=== PATIENT | female | born 1965 | race Caucasian/White ===

== ENCOUNTER → 2017-02-05 | Outpatient (REF) | payer BC ==
[~2017-02-05] MED LIST: DULC5TAB PO; FLUO40CA PO; MULT1TAB9 PO
[2017-02-05 12:15] LABS: ALBUMIN 4.2 GM/DL (3.2-5.2); ALBUMIN/GLOBULIN RATIO 1.31 (1.00-1.93); ALKALINE PHOSPHATASE 71 U/L (45-117); ALT/SGPT 31 U/L (12-78); ANION GAP 8 MEQ/L (8-16); AST/SGOT 15 U/L (15-37); BILIRUBIN,TOTAL 0.4 MG/DL (0.2-1.0); BLOOD UREA NITROGEN 14 MG/DL (7-18); CALCIUM LEVEL 9.5 MG/DL (8.5-10.1); CARBON DIOXIDE LEVEL 28 MEQ/L (21-32); CHLORIDE LEVEL 102 MEQ/L (98-107); CHOLESTEROL LEVEL 238 MG/DL (<200); CREATININE FOR GFR 0.77 MG/DL (0.55-1.02); GLOMERULAR FILTRATION RATE > 60.0 (>51); GLUCOSE, FASTING 93 MG/DL (70-105); POTASSIUM SERUM 4.2 MEQ/L (3.5-5.1); SODIUM LEVEL 138 MEQ/L (136-145); TOTAL PROTEIN 7.4 GM/DL (6.4-8.2); TRIGLYCERIDES LEVEL 139 MG/DL (<150)
== END ==
LOC: M SFHCCLAY 07:52
PROVIDERS: ATTEND Nurse Practitioner
DX: Z00.00 Encounter for general adult medical examination without abnormal findings (principal)

== ENCOUNTER 2018-05-23 10:03 | Emergency (ER) | payer OTHER, BC ==
[2018-05-23] MEDS: BACLOFEN 10 MG TAB PO (11:34)
[2018-05-23] MEDS: NORCO, ANEXSIA 5/325MG TABLET (HYDROcodone/ACETAMINOPHEN) PO (11:35)
== END 2018-05-23 12:02 | disposition home or self-care (01) ==
LOC: M ED 10:03
DX: S13.4XXA Sprain of ligaments of cervical spine, initial encounter (principal); V49.9XXA Car occupant (driver) (passenger) injured in unspecified traffic accident, initial encounter; Y92.9 Unspecified place or not applicable; Y93.9 Activity, unspecified; Y99.9 Unspecified external cause status; G89.29 Other chronic pain; M54.9 Dorsalgia, unspecified; F41.9 Anxiety disorder, unspecified; Z98.1 Arthrodesis status; Z79.899 Other long term (current) drug therapy
CPT/HCPCS: 72125

== ENCOUNTER 2018-10-06 13:31 | Emergency (ER) | payer BC, OTHER ==
[2018-10-06] MEDS: NORCO, ANEXSIA 5/325MG TABLET (HYDROcodone/ACETAMINOPHEN) PO (16:38)
== END 2018-10-06 17:07 | disposition home or self-care (01) ==
LOC: M ED 13:31
DX: S93.402A Sprain of unspecified ligament of left ankle, initial encounter (principal); X50.9XXA Other and unspecified overexertion or strenuous movements or postures, initial encounter; Y92.018 Other place in single-family (private) house as the place of occurrence of the external cause; Z79.899 Other long term (current) drug therapy
CPT/HCPCS: 73610

== ENCOUNTER → 2018-10-14 | Outpatient (REF) | payer BC ==
[2018-10-14 11:34] LABS: HEMATOCRIT 41.8 % (36.0-47.0); HEMOGLOBIN 13.8 g/dl (12.0-15.5); MEAN CORPUSCULAR HEMOGLOBIN 29.9 pg (27.0-33.0); MEAN CORPUSCULAR VOLUME 90.7 fl (80.0-96.0); PLATELET COUNT, AUTOMATED 249 10^3/uL (150-450); RED BLOOD COUNT 4.61 10^6/uL (4.00-5.40); RED CELL DISTRIBUTION WIDTH 12.1 % (11.5-14.5); WHITE BLOOD COUNT 5.6 10^3/uL (4.0-10.0)
[2018-10-14 11:43] LABS: ALBUMIN 3.7 GM/DL (3.2-5.2); ALBUMIN/GLOBULIN RATIO 1.19 (1.00-1.93); ALKALINE PHOSPHATASE 51 U/L (45-117); ALT/SGPT 23 U/L (12-78); ANION GAP 5 MEQ/L (8-16); AST/SGOT 10 U/L (7-37); BILIRUBIN,TOTAL 0.7 MG/DL (0.2-1.0); BLOOD UREA NITROGEN 16 MG/DL (7-18); CALCIUM LEVEL 8.6 MG/DL (8.5-10.1); CARBON DIOXIDE LEVEL 29 MEQ/L (21-32); CHLORIDE LEVEL 106 MEQ/L (98-107); CHOLESTEROL LEVEL 196 MG/DL (<200); CHOLESTEROL RISK RATIO 3.438 (<5); CREATININE FOR GFR 0.74 MG/DL (0.55-1.30); GLOMERULAR FILTRATION RATE > 60.0 (>51); GLUCOSE, FASTING 95 MG/DL (70-100); HDL CHOLESTEROL 57 MG/DL (>40); LDL CHOLESTEROL 123 MG/DL (<100); NON-HDL-C 139 MG/DL; POTASSIUM SERUM 4.6 MEQ/L (3.5-5.1); SODIUM LEVEL 140 MEQ/L (136-145); TOTAL 25(OH) VITAMIN D 32.5 NG/ML (30.0-100.0); TOTAL PROTEIN 6.8 GM/DL (6.4-8.2); TRIGLYCERIDES LEVEL 82 MG/DL (<150)
== END ==
LOC: M SFHCCLAY 07:03
DX: F32.9 Major depressive disorder, single episode, unspecified (principal); E78.5 Hyperlipidemia, unspecified; E55.9 Vitamin D deficiency, unspecified

== ENCOUNTER → 2019-05-11 | Outpatient (REF) | payer BC ==
[~2019-05-11] MED LIST changes: +BACL1TAB8 PO; +HYDR-3715 PO
== END ==
LOC: M LAB REF 18:45
PROVIDERS: ATTEND Plastic Surgery Surgery of the Hand
DX: D23.71 Other benign neoplasm of skin of right lower limb, including hip (principal)

== ENCOUNTER → 2019-06-05 | Outpatient (REF) | payer BC ==
[2019-06-05 12:04] LABS: CHOLESTEROL RISK RATIO 3.564 (<5)
== END ==
LOC: M SFHCCLAY 07:07
PROVIDERS: ATTEND Nurse Practitioner Family
DX: E78.5 Hyperlipidemia, unspecified (principal)

== ENCOUNTER → 2020-02-29 | Outpatient (REF) | payer BC ==
[2020-02-29 17:30] LABS: HEMATOCRIT 41.6 % (36.0-47.0); HEMOGLOBIN 13.3 g/dl (12.0-15.5); MEAN CORPUSCULAR HEMOGLOBIN 28.7 pg (27.0-33.0); MEAN CORPUSCULAR VOLUME 89.8 fl (80.0-96.0); PLATELET COUNT, AUTOMATED 326 10^3/uL (150-450); RED BLOOD COUNT 4.63 10^6/uL (4.00-5.40); WHITE BLOOD COUNT 9.7 10^3/uL (4.0-10.0)
[2020-02-29 17:31] LABS: ALBUMIN 3.7 GM/DL (3.2-5.2); ALT/SGPT 23 U/L (12-78); BILIRUBIN,TOTAL 0.4 MG/DL (0.2-1.0); BLOOD UREA NITROGEN 13 MG/DL (7-18); CALCIUM LEVEL 9.1 MG/DL (8.5-10.1); CARBON DIOXIDE LEVEL 27 MEQ/L (21-32); CHLORIDE LEVEL 105 MEQ/L (98-107); CHOLESTEROL LEVEL 217 MG/DL (<200); CHOLESTEROL RISK RATIO 4.254 (<5); CREATININE FOR GFR 0.79 MG/DL (0.55-1.30); GLOMERULAR FILTRATION RATE > 60.0 (>51); GLUCOSE, FASTING 139 MG/DL (70-100); HDL CHOLESTEROL 51 MG/DL (>40); LDL CHOLESTEROL 120 MG/DL (<100); NON-HDL-C 166 MG/DL; POTASSIUM SERUM 4.3 MEQ/L (3.5-5.1); SODIUM LEVEL 138 MEQ/L (136-145); TRIGLYCERIDES LEVEL 232 MG/DL (<150)
[2020-02-29 17:41] LABS: TOTAL 25(OH) VITAMIN D 25.4 NG/ML (30.0-100.0)
== END ==
LOC: M SFHCCLAY 11:18
PROVIDERS: ATTEND Nurse Practitioner Family
DX: N92.4 Excessive bleeding in the premenopausal period (principal); E78.5 Hyperlipidemia, unspecified; E55.9 Vitamin D deficiency, unspecified

== ENCOUNTER → 2020-06-10 | Outpatient (REF) | payer BC ==
[2020-07-09 03:52] LABS: HEMATOCRIT 40.8 % (36.0-47.0); HEMOGLOBIN 13.4 g/dl (12.0-15.5); MEAN CORPUSCULAR HEMOGLOBIN 29.6 pg (27.0-33.0); MEAN CORPUSCULAR HGB CONC 32.8 g/dl (32.0-36.5); MEAN CORPUSCULAR VOLUME 90.3 fl (80.0-96.0); PLATELET COUNT, AUTOMATED 293 10^3/uL (150-450); RED BLOOD COUNT 4.52 10^6/uL (4.00-5.40); WHITE BLOOD COUNT 5.7 10^3/uL (4.0-10.0)
[2020-07-25 10:26] LABS: ALBUMIN 3.8 GM/DL (3.2-5.2); ALT/SGPT 21 U/L (12-78); BILIRUBIN,TOTAL 0.5 MG/DL (0.2-1.0); BLOOD UREA NITROGEN 14 MG/DL (7-18); CALCIUM LEVEL 9.3 MG/DL (8.5-10.1); CARBON DIOXIDE LEVEL 29 MEQ/L (21-32); CHLORIDE LEVEL 105 MEQ/L (98-107); CHOLESTEROL LEVEL 243 MG/DL (<200); CHOLESTEROL RISK RATIO 3.919 (<5); CREATININE FOR GFR 0.71 MG/DL (0.55-1.30); GLOMERULAR FILTRATION RATE > 60.0 (>51); GLUCOSE, FASTING 90 MG/DL (70-100); HDL CHOLESTEROL 62 MG/DL (>40); LDL CHOLESTEROL 148 MG/DL (<100); NON-HDL-C 181 MG/DL; SODIUM LEVEL 139 MEQ/L (136-145); TOTAL 25(OH) VITAMIN D 45.9 NG/ML (30.0-100.0); TOTAL PROTEIN 7.2 GM/DL (6.4-8.2); TRIGLYCERIDES LEVEL 165 MG/DL (<150)
== END ==
LOC: M SFHCCLAY 15:48
PROVIDERS: ATTEND Nurse Practitioner Family
DX: I10 Essential (primary) hypertension (principal); E78.5 Hyperlipidemia, unspecified; E55.9 Vitamin D deficiency, unspecified

== ENCOUNTER → 2020-11-28 | Outpatient (REF) | payer BC ==
[2020-11-28 12:29] LABS: CHOLESTEROL RISK RATIO 3.466 (<5)
[2020-11-28 12:35] LABS: TOTAL 25(OH) VITAMIN D 28.2 NG/ML (30.0-100.0)
== END ==
LOC: M SFHCCLAY 08:32
PROVIDERS: ATTEND Nurse Practitioner Family
DX: R73.09 Other abnormal glucose (principal); E78.5 Hyperlipidemia, unspecified; F32.9 Major depressive disorder, single episode, unspecified

== ENCOUNTER → 2020-12-19 | Outpatient (CLI) | payer SELFPAY | LOC: M LABSMTC 11:25 | PROVIDERS: ATTEND Pediatrics | DX: Z20.822 Contact with and (suspected) exposure to COVID-19 (principal) ==

== ENCOUNTER → 2021-05-16 | Outpatient (REF) | payer BC ==
[2021-05-16 12:19] LABS: HEMATOCRIT 40.4 % (36.0-47.0); HEMOGLOBIN 13.2 g/dl (12.0-15.5); MEAN CORPUSCULAR HEMOGLOBIN 29.5 pg (27.0-33.0); MEAN CORPUSCULAR HGB CONC 32.7 g/dl (32.0-36.5); MEAN CORPUSCULAR VOLUME 90.4 fl (80.0-96.0); PLATELET COUNT, AUTOMATED 299 10^3/uL (150-450); RED BLOOD COUNT 4.47 10^6/uL (4.00-5.40); WHITE BLOOD COUNT 7.6 10^3/uL (4.0-10.0)
[2021-05-16 12:41] LABS: ALBUMIN 3.5 GM/DL (3.2-5.2); ALT/SGPT 20 U/L (12-78); BILIRUBIN,TOTAL 0.6 MG/DL (0.2-1.0); BLOOD UREA NITROGEN 14 MG/DL (7-18); CALCIUM LEVEL 9.1 MG/DL (8.5-10.1); CARBON DIOXIDE LEVEL 26 MEQ/L (21-32); CHLORIDE LEVEL 107 MEQ/L (98-107); CHOLESTEROL LEVEL 244 MG/DL (<200); CHOLESTEROL RISK RATIO 4.784 (<5); CREATININE FOR GFR 0.71 MG/DL (0.55-1.30); GLOMERULAR FILTRATION RATE > 60.0 (>51); GLUCOSE, FASTING 97 MG/DL (70-100); HDL CHOLESTEROL 51 MG/DL (>40); LDL CHOLESTEROL 138 MG/DL (<100); NON-HDL-C 193 MG/DL; POTASSIUM SERUM 4.6 MEQ/L (3.5-5.1); SODIUM LEVEL 139 MEQ/L (136-145); TOTAL PROTEIN 6.7 GM/DL (6.4-8.2); TRIGLYCERIDES LEVEL 273 MG/DL (<150)
[2021-05-16 12:46] LABS: TOTAL 25(OH) VITAMIN D 31.9 NG/ML (30.0-100.0)
== END ==
LOC: M SFHCCLAY 07:07
PROVIDERS: ATTEND Family Medicine
DX: I10 Essential (primary) hypertension (principal); E78.5 Hyperlipidemia, unspecified; E55.9 Vitamin D deficiency, unspecified

== ENCOUNTER → 2021-05-19 | Outpatient (REF) | payer BC | LOC: M SFHCCLAY 09:01 | PROVIDERS: ATTEND Family Medicine | DX: D89.2 Hypergammaglobulinemia, unspecified (principal) ==

== ENCOUNTER → 2021-06-09 | Outpatient (REF) | payer BC | LOC: M SFHCCLAY 07:59 | PROVIDERS: ATTEND Family Medicine | DX: Z12.4 Encounter for screening for malignant neoplasm of cervix (principal) | CPT/HCPCS: 87624; G0123 ==

== ENCOUNTER → 2021-06-22 | Outpatient (CLI) | payer BC ==
--- NOTE | 2021-06-22 19:48 | REP ---
INDICATION: UTERINE ENLARGEMENT COMPARISON: None. TECHNIQUE: Transabdominal pelvic ultrasound followed by transvaginal examination for better evaluation of the endometrium and adnexa with color Doppler evaluation of the ovaries. FINDINGS: Bladder is unremarkable and measures 15.6 x 6.1 x 11.1 cm. Enlarged myomatous uterus measures approximately 14.0 x 9.2 x 10.2 cm. Uterus is diffusely heterogeneous and the largest intramural fibroid suggested measures roughly 9.8 x 8.4 x 8.8 cm. The endometrial complex measures 8.1 mm excluding small amount of endocervical fluid and 10 x 3 x 6 mm endometrial polyp. Ovaries are not visualized on either transabdominal or transvaginal imaging. No free fluid or adnexal mass lesion. IMPRESSION: Enlarged myomatous uterus. 10 mm endocervical polyp. Ovaries not visualized. No pelvic free fluid. <Electronically signed by Mohamud Douglas > 06/22/211944
== END ==
LOC: M RAD 15:12
PROVIDERS: ATTEND Family Medicine
DX: N84.1 Polyp of cervix uteri (principal); N85.2 Hypertrophy of uterus

== ENCOUNTER → 2021-08-25 | Outpatient (CLI) | payer BC ==
[~2021-08-25] MED LIST changes: +FLUO10CA16 PO; +FLUO20CA22 PO; +LISI10TA22 PO
--- NOTE | 2021-08-25 15:11 | ECGEPIP ---
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
== END ==
LOC: M EKG 10:54
PROVIDERS: ATTEND Anesthesiology
DX: Z01.810 Encounter for preprocedural cardiovascular examination (principal)

== ENCOUNTER → 2021-08-25 | Outpatient (CLI) | payer BC | LOC: M LABSMTC 11:16 | PROVIDERS: ATTEND Anesthesiology | DX: Z01.818 Encounter for other preprocedural examination (principal); Z11.52 Encounter for screening for COVID-19 ==

== ENCOUNTER 2021-08-30 10:00 | Day surgery (SDC) | payer BC ==
[~2021-08-30] VITALS: Ht 165.1 cm; Wt 66.1 kg
[~2021-08-30 10:00] MED LIST changes: +ACETAMINOPHEN 1000MG 100ML IV BTL (OFIRMEV) (J0131 PER 10MG) As Ordered ONE; +HYDROmorphone HCL 2 MG/ML 1ML VIAL As Ordered ONE; +KETOROLAC 60MG 2ML VIAL As Ordered ONE; +LIDOCAINE 1% MDV 20ML VIAL SQ PRN; +LIDOCAINE 2% 100MG/5ML SDV (FOR ANES.) As Ordered ONE; +LR 1,000 ML IV ONE; +MIDAZOLAM INJ 2MG/2ML VIAL (J2250 PER 1MG) As Ordered ONE; +ONDANSETRON 4MG/2ML VIAL As Ordered ONE; +OXYC1TAB23 PO; +ROCURONIUM BROMIDE 50 MG/5 ML VIAL As Ordered ONE; +SUGAMMADEX SODIUM 500 MG/5 ML VIAL (BRIDION) As Ordered ONE; +ceFAZolin SOD 2 GM in IV 1 EA IV ONE; +dexameTHASONE 4 MG/ML 1ML VIAL (J1100 PER 1MG) As Ordered ONE; +fentaNYL 100 MCG/2 ML INJECTION (J3010) As Ordered ONE; +propofoL 200 MG/20 ML VIAL As Ordered ONE
--- OUTSIDE RECORDS SUMMARY | 2021-08-30 10:06 | CCD ---
Author Author [facility] [employer] Organization [facility] Address Unknown Phone Unavailable Care Team Providers Care Armature Rewinder Name Role Phone Vernon Polo Unavailable PROBLEMS Type Condition ICD9-CM Code [id number] Code Onset Dates Condition S tatus W/U Status Risk SNOMED Code Notes Problem Colon cancer screening Z12.11 Active confirmed 050303094 Problem Breast screening Z12.39 Active confirmed 243 568610 Problem Menopausal symptom N95.1 Active confirmed 2 9221468 Problem Immunization counseling Z71.89 Active confirmed 179676835 Problem Visit for annual health examination Z00.00 Acti ve confirmed 777765941 Problem Paresthesia of skin R20.2 Active confirmed 56313074 Problem Hyperlipidemia, unspecified hyperlipidemia type E7 8.5 Active confirmed 19671986 Problem Vitamin D deficiency E55.9 Active confirmed 93718254 Problem Menopausal symptoms N95.1 Active confirmed 67067237 Problem Hypergammaglobulinemia D89.2 Active confirmed 927193219 Problem Depression, unspecified depression type F32.9 Active confirmed 93580682 Problem Primary hypertension I10 Active confirmed 39910719 Problem Abnormal mammogram of right breast R92.8 Activ e confirmed 122778052 Problem Excessive bleeding in premenopausal period N92.4 Active confirmed 222856132 Problem Essential hypertension I10 Active confirmed 24312167 Problem Encounter for general adult medical exam ination with abnormal findings Z00.01 Active confirmed 064784925 Problem Mixed hyperlipidemia E78.2 Active confirmed 724938055 ALLERGIES No Known Allergies ENCOUNTERS from 1965 to 2021-07-18 Encounter Location Date Provider Diagnosis [facility] [address] [place] [address] [place] [address] Jul, Vernon Christ IMMUNIZATIONS Vaccine Route Administration Date Status Influenza Pharmacy Given Unknown Jul 27, 2020 Adminis tered Influenza 18 yrs & older Flublok IM Intramuscular Aug 07, 2019 Administered Influenza 18 yrs & older Flublok IM Intramuscular Aug 12, 2018 Administered TDAP 0.5mL (Boostrix) IM Intramuscular February 01, 2016 Administe red Influenza 6mo & up Fluzone IM Intramuscular Sep 03, 2017 Admi nistered Influenza 6mo & up Fluzone IM Intramuscular Dec 06, 2016 Admi nistered SOCIAL HISTORY Tobacco Use: Social History Observation Description Date Details (start date - stop date) Never Smoker Sex Assigned At : Social History Observation Description Sex Assigned At Unknown Education: Question Answer Notes Level of Education: College Audit Question Answer Notes Total Score: 5 Interpretation: Alcohol Education Language: Question Answer Notes Languages spoken: Tamazight Restorationist: Question Answer Notes Restorationist 13 Uatsdin Sexual Hx: Question Answer Notes Had sex in the last 12 months (vaginal, oral, or anal)? Yes Have you ever had an STD? No with Men only Use protection? No Drug and Alcohol Question Answer Notes Total Score: 0 Interpretation: No problems reported Alcohol Screening: Question Answer Notes Did you have a drink containing alcohol in the past year? Ye s Points 4 Interpretation Positive How often did you have six or more drinks on one occas ion in the past year? Never (0 points) How many drinks did you have on a typica l day when you were drinking in the past year? 1 or 2 (0 points) How often did you have a drink containing alcohol in t he past year? Four or more times a week (4 points) Tobacco Use: Question Answer Notes Are you a: never smoker never smoker REASON FOR REFERRAL No Information VITAL SIGNS No information MEDICATIONS Medication SIG (Take, Route, Frequency, Duration) Notes Start Da te End Date Status Lisinopril 10 MG 1 tablet Orally Once a day for 30 day(s) Jun, Active Prozac 10 MG TAKE ONE CAPSULE BY MOUTH EVERY MORNING Active PROzac 20 MG 1 capsule in the morning Orally Once a day total 30mg in AM Active [place] 3 1000 MG 1 capsule Orally Once a day 2 caps Active Lisinopril 5 MG 1 tablet Orally Once a day Jan, Active Womens One Daily Orally Active PROCEDURES No Information RESULTS No Results REASON FOR VISIT No Information MEDICAL (GENERAL) HISTORY Type Description Date Medical History Depression, unspecified depression type Medical History Numbness of right hand Medical History Numbness of left hand Surgical History Colonoscopy 05/2016 Surgical History Left shoulder and cervical surgery Hospitalization History w/surgery 06/2017 Goals Section No Information Health Concerns No Information MEDICAL EQUIPMENT No Information MENTAL STATUS No Information FUNCTIONAL STATUS No Information ASSESSMENTS No Information PLAN OF TREATMENT Medication Medication Name Sig Start Date Stop Date [place] 3 1000 MG 1 capsule Orally Once a day Lisinopril 10 MG 1 tablet Orally Once a day for 30 day(s) Jun PROzac 20 MG 1 capsule in the morning Orally Once a day Womens One Daily Orally Prozac 10 MG TAKE ONE CAPSULE BY MOUTH EVERY MORNING Next Appt Details Provider Name:Momo Broussardh, 2021-10-10 07 :15:00 AM, Anjana KNIGHT, , [place], [address], Insurance Providers Payer Name Payer Address Payer Phone Insured Name Patient Relati onship to Insured Coverage Start Date Coverage End Date [facility] [id number] [facility] [employer] [place] [address] RADHA CLEMENS [id number]
--- OUTSIDE RECORDS SUMMARY | 2021-08-30 10:06 | CCD ---
Author Author [facility] [employer] Organization [facility] [employer] [facility] Address Unknown Phone Unavailable Care Team Providers Care Underwriting Internship Name Role Phone Momo Saenz Unavailable PROBLEMS Type Condition ICD9-CM Code KBO34-HB Code Onset Dates Condition S tatus W/U Status Risk SNOMED Code Notes Problem Colon cancer screening Z12.11 Active confirmed 137965229 Problem Breast screening Z12.39 Active confirmed 243 546273 Problem Menopausal symptom N95.1 Active confirmed 2 5864127 Problem Immunization counseling Z71.89 Active confirmed 012417912 Problem Visit for annual health examination Z00.00 Acti ve confirmed 586379064 Problem Paresthesia of skin R20.2 Active confirmed 68098313 Problem Hyperlipidemia, unspecified hyperlipidemia type E7 8.5 Active confirmed 75902971 Problem Vitamin D deficiency E55.9 Active confirmed 35544364 Problem Menopausal symptoms N95.1 Active confirmed 51205706 Problem Hypergammaglobulinemia D89.2 Active confirmed 479765732 Problem Depression, unspecified depression type F32.9 Active confirmed 00016985 Problem Primary hypertension I10 Active confirmed 47491333 Problem Abnormal mammogram of right breast R92.8 Activ e confirmed 546411768 Problem Excessive bleeding in premenopausal period N92.4 Active confirmed 614925911 Problem Essential hypertension I10 Active confirmed 01376112 Problem Encounter for general adult medical exam ination with abnormal findings Z00.01 Active confirmed 546636739 Problem Mixed hyperlipidemia E78.2 Active confirmed 969227761 ALLERGIES No Known Allergies ENCOUNTERS from 1965 to 2021-07-19 Encounter Location Date Provider Diagnosis [facility] Anjana HARDIK [phone] [place] [address] Jul, Momo Broussardh IMMUNIZATIONS Vaccine Route Administration Date Status Influenza [...] Education Language: Question Answer Notes Languages spoken: [place]inean Christian: Question Answer Notes Christian 13 Taoist Sexual Hx: Question Answer Notes Had sex [...] a day total 30mg in AM Active [place] 3 1000 MG 1 capsule Orally Once [...] Medication Name Sig Start Date Stop Date [place] 3 1000 MG 1 capsule Orally Once a day Lisinopril 10 MG 1 tablet Orally Once a day for 30 day(s) Jun PROzac 20 MG 1 capsule in the morning Orally Once a day Womens One Daily Orally Prozac 10 MG TAKE ONE CAPSULE BY MOUTH EVERY MORNING Next Appt Details Provider Name:Momo Saenz, 2021-10-10 07 :15:00 AM, Anjana KNIGHT, , [place], [address], Insurance Providers Payer Name Payer Address Payer Phone Insured Name Patient Relati onship to Insured Coverage Start Date Coverage End Date [facility] [id number] [facility] [address] [place]ANNA [place] [place] [address] RADHA CLEMENS [id number]
--- OUTSIDE RECORDS SUMMARY | 2021-08-30 10:06 | CCD ---
Author Author [facility] [email or web address] [facility] [employer] Organization [facility] [employer] [facility] Syst ems Address Unknown Phone Unavailable Care Team Providers Care Coverstitch Elastic Attacher Name Role Phone Momo Saenz Unavailable PROBLEMS Type Condition ICD9-CM Code [id number] Code Onset Dates Condition S tatus W/U Status Risk SNOMED Code Notes Problem Colon cancer screening Z12.11 Active confirmed 651542004 Problem Breast screening Z12.39 Active confirmed 243 968981 Problem Menopausal symptom N95.1 Active confirmed 2 6441678 Problem Immunization counseling Z71.89 Active confirmed 678870318 Problem Visit for annual health examination Z00.00 Acti ve confirmed 587439300 Problem Paresthesia of skin R20.2 Active confirmed 93852077 Problem Hyperlipidemia, unspecified hyperlipidemia type E7 8.5 Active confirmed 45770090 Problem Vitamin D deficiency E55.9 Active confirmed 05839747 Problem Menopausal symptoms N95.1 Active confirmed 44580383 Problem Hypergammaglobulinemia D89.2 Active confirmed 816662111 Problem Depression, unspecified depression type F32.9 Active confirmed 47561660 Problem Primary hypertension I10 Active confirmed 25669749 Problem Abnormal mammogram of right breast R92.8 Activ e confirmed 700647031 Problem Excessive bleeding in premenopausal period N92.4 Active confirmed 798365314 Problem Essential hypertension I10 Active confirmed 51995555 Problem Encounter for general adult medical exam ination with abnormal findings Z00.01 Active confirmed 822493537 Problem Mixed hyperlipidemia E78.2 Active confirmed 990276945 ALLERGIES No Known Allergies ENCOUNTERS from 1965 to 2021-07-06 Encounter Location Date Provider Diagnosis [facility] Anjana HARDIK [phone] [place] [address] Jul, Momo Saenz Uterine enlargement N85.2 IMMUNIZATIONS Vaccine Route Administration Date Status Influenza [...] Education Language: Question Answer Notes Languages spoken: Swedish Jewish: Question Answer Notes Jewish 13 Confucianist Sexual Hx: Question Answer Notes Had sex [...] never smoker never smoker REASON FOR REFERRAL from 1965 to 2021-07-06 Reason patient who had been on sust ained Rx with BCP's presents with uterine enlargement, cervical polyp and myomata. Diagnosis 1 Uterine enlargement (N85.2) Referral Organization [facility] Referring Provider First Name Momo Referring Provider Last Name [place] Referring Provider Specialty Family Medicine Referred Provider Mumtaz Azar Referred Provider Specialty Obstetrics Referral Priority Routine Referral Appointment Date 2021-07-11 General Notes Jagruti Cancino 07/06/2021 6:3 8:50 AM > Ref faxJagruti Ramos 07/06/2021 8:06:27 AM > Patient aware of date and time other 2 ref have been canceled VITAL SIGNS No information MEDICATIONS Medication SIG (Take, Route, Frequency, Duration) Notes Start Da te End Date Status Lisinopril 10 MG 1 tablet Orally Once a day for 30 day(s) Jun, Active Prozac 10 MG TAKE ONE CAPSULE BY MOUTH EVERY MORNING Active PROzac 20 MG 1 capsule in the morning Orally Once a day total 30mg in AM Active [place] 3 1000 MG 1 capsule Orally Once a day 2 caps Active Lisinopril 5 MG 1 tablet Orally Once a day Jan, Active Womens One Daily Orally Active PROCEDURES No Information RESULTS No Results REASON FOR VISIT referral MEDICAL (GENERAL) HISTORY Type Description Date Medical History Depression, unspecified depression type Medical History Numbness of right hand Medical History Numbness of left hand Surgical History Colonoscopy 05/2016 Surgical History Left shoulder and cervical surgery Hospitalization History w/surgery 06/2017 Goals Section No Information Health Concerns No Information MEDICAL EQUIPMENT No Information MENTAL STATUS No Information FUNCTIONAL STATUS No Information ASSESSMENTS Encounter Date Diagnosis Assessment Notes Treatment Notes Treatm ent Clinical Notes Jul, Uterine enlargement (ICD-10 - N85.2) PLAN OF TREATMENT Medication Medication Name Sig Start Date Stop Date [place] 3 1000 MG 1 capsule Orally Once a day Lisinopril 10 MG 1 tablet Orally Once a day for 30 day(s) Jun PROzac 20 MG 1 capsule in the morning Orally Once a day Womens One Daily Orally Prozac 10 MG TAKE ONE CAPSULE BY MOUTH EVERY MORNING Referrals Referral Date Details 2021-07-11 2021-07-11, patient who had been on sustained Rx with BCP's presents with uterine enlargement, cervical polyp and myomata., Mumtaz Azar Next Appt Details Provider Name:Momo Saenz, 2021-10-10 07 :15:00 AM, Anjana KNIGHT, , [place], [address], Insurance Providers Payer Name Payer Address Payer Phone Insured Name Patient Relati onship to Insured Coverage Start Date Coverage End Date BCBS [place] PPO [id number] [facility] [place] [address] RADHA CLEMENS [id number]
--- OUTSIDE RECORDS SUMMARY | 2021-08-30 10:06 | CCD ---
Author Author [facility] [employer] Organization [facility] Syst ems Address Unknown Phone Unavailable Care Team Providers Care Gymnastic Coach Name Role Phone Momo Saenz Unavailable PROBLEMS Type Condition ICD9-CM Code SPY13-LM Code Onset Dates Condition S tatus W/U Status Risk SNOMED Code Notes Problem Colon cancer screening Z12.11 Active confirmed 916102517 Problem Breast screening Z12.39 Active confirmed 243 977361 Problem Menopausal symptom N95.1 Active confirmed 2 1822857 Problem Immunization counseling Z71.89 Active confirmed 590459054 Problem Visit for annual health examination Z00.00 Acti ve confirmed 789483214 Problem Paresthesia of skin R20.2 Active confirmed 33855597 Problem Hyperlipidemia, unspecified hyperlipidemia type E7 8.5 Active confirmed 15492579 Problem Vitamin D deficiency E55.9 Active confirmed 39299171 Problem Menopausal symptoms N95.1 Active confirmed 32845969 Problem Hypergammaglobulinemia D89.2 Active confirmed 826174497 Problem Depression, unspecified depression type F32.9 Active confirmed 59471185 Problem Primary hypertension I10 Active confirmed 96221830 Problem Abnormal mammogram of right breast R92.8 Activ e confirmed 822377606 Problem Excessive bleeding in premenopausal period N92.4 Active confirmed 844229439 Problem Essential hypertension I10 Active confirmed 48832533 Problem Encounter for general adult medical exam ination with abnormal findings Z00.01 Active confirmed 306085530 Problem Mixed hyperlipidemia E78.2 Active confirmed 808382948 ALLERGIES No Known Allergies ENCOUNTERS from 1965 to 2021-06-14 Encounter Location Date Provider Diagnosis [facility] Anajna HARDIK [phone] [place] [address] Jun, Momo Saenz Uterine enlargement N85.2 ; Menopausal s ymptoms N95.1 ; Primary hypertension I10 and Screening for cervical cancer Z12.4 IMMUNIZATIONS Vaccine Route Administration Date Status Influenza [...] Education Language: Question Answer Notes Languages spoken: Yi Catholic: Question Answer Notes Catholic 13 Mosque Sexual Hx: Question Answer Notes Had sex [...] REASON FOR REFERRAL No Information VITAL SIGNS Weight 149 lbs Jun, Height 5'7" in Jun, BMI 23.33 kg/m2 Jun, Heart Rate 92 /min Jun, Respiratory Rate 18 /min Jun, Temperature 98 degrees Fahrenheit Jun, Oximetry 98RA Jun, Blood pressure systolic 164 mm Hg Jun, Blood pressure diastolic 106 mm Hg Jun, MEDICATIONS Medication SIG (Take, Route, Frequency, Duration) Notes Start Da te End Date Status Lisinopril 10 MG 1 tablet Orally Once a day for 30 day(s) Jun, Active Prozac 10 MG TAKE ONE CAPSULE BY MOUTH EVERY MORNING Active PROzac 20 MG 1 capsule in the morning Orally Once a day total 30mg in AM Active [place] 3 1000 MG 1 capsule Orally Once a day 2 caps Active Lisinopril 5 MG 1 tablet Orally Once a day Jan, Active Womens One Daily Orally Active PROCEDURES No Information RESULTS Component Value Reference Range PAP REQUEST FOR SERVICE Reviewed date:06/13/2021 07:12:30 Interpretation:Normal Performing Lab:[facility], [facility] [address] [address] , ,[place] [address] REASON FOR VISIT veneer sorter MEDICAL (GENERAL) HISTORY Type Description Date Medical [...] Notes Treatment Notes Treatm ent Clinical Notes Jun, Uterine enlargement (ICD-10 - N85.2) Jun, Menopausal symptoms (ICD-10 - N95.1) Jun, Primary hypertension (ICD-10 - I10) please continue to check bp at home and call if your bp remains above 140/90 (either number) after 2 weeks. also call if you have increase in cough Jun, Screening for cervical cancer (ICD-10 - Z12.4) PLAN OF TREATMENT Medication Medication Name Sig Start Date Stop Date [place] 3 1000 MG 1 capsule Orally Once a day Lisinopril 10 MG 1 tablet Orally Once a day for 30 day(s) Jun PROzac 20 MG 1 capsule in the morning Orally Once a day Womens One Daily Orally Prozac 10 MG TAKE ONE CAPSULE BY MOUTH EVERY MORNING Treatment Notes Assessment Notes Clinical Notes Primary hypertension please continue to check bp at home and call if your bp remains above 140/90 (either number) after 2 weeks. also call if you have increase in cough Future Test Test Name Order Date PELVIS NON-OB COMPLETE [id number] Next Appt Details 4 Months Reason: Provider Name:Momo Saenz, 2021-10-10 07 :15:00 AM, JuanisDaniela KNIGHT, , [place], [address], Insurance Providers Payer Name Payer Address Payer Phone Insured Name Patient Relati onship to Insured Coverage Start Date Coverage End Date [facility] [id number] [place] [address] RADHA CLEMENS [id number]
--- OUTSIDE RECORDS SUMMARY | 2021-08-30 10:06 | CCD ---
Author Author [facility] [employer] Organization [facility] [employer] [facility] Syst ems Address Unknown Phone Unavailable Care Team Providers Care Regenerator Operator Name Role Phone Momo Saenz Unavailable PROBLEMS Type Condition ICD9-CM Code [id number] Code Onset Dates Condition S tatus W/U Status Risk SNOMED Code Notes Problem Colon cancer screening Z12.11 Active confirmed 789698381 Problem Breast screening Z12.39 Active confirmed 243 135856 Problem Menopausal symptom N95.1 Active confirmed 2 5763733 Problem Immunization counseling Z71.89 Active confirmed 383969426 Problem Visit for annual health examination Z00.00 Acti ve confirmed 361737947 Problem Paresthesia of skin R20.2 Active confirmed 25650126 Problem Hyperlipidemia, unspecified hyperlipidemia type E7 8.5 Active confirmed 46779604 Problem Vitamin D deficiency E55.9 Active confirmed 15439236 Problem Menopausal symptoms N95.1 Active confirmed 40058096 Problem Hypergammaglobulinemia D89.2 Active confirmed 346948577 Problem Depression, unspecified depression type F32.9 Active confirmed 66330176 Problem Primary hypertension I10 Active confirmed 72739370 Problem Abnormal mammogram of right breast R92.8 Activ e confirmed 375945476 Problem Excessive bleeding in premenopausal period N92.4 Active confirmed 076206863 Problem Essential hypertension I10 Active confirmed 42351369 Problem Encounter for general adult medical exam ination with abnormal findings Z00.01 Active confirmed 105863908 Problem Mixed hyperlipidemia E78.2 Active confirmed 275484814 ALLERGIES No Known Allergies ENCOUNTERS from 1965 to 2021-08-17 Encounter Location Date Provider Diagnosis [facility] Anjana BROOKEENA [phone] [place] [address] Aug, 2021 Momo Broussardh IMMUNIZATIONS Vaccine Route Administration Date [...] Education Language: Question Answer Notes Languages spoken: Wallisian Pentecostal: Question Answer Notes Pentecostal 13 Moravian Sexual Hx: Question Answer Notes Had sex [...] a day total 30mg in AM Active [place] 3 1000 MG 1 capsule Orally Once a day 2 caps Active Lisinopril 5 MG 1 tablet Orally Once a day Jan, Active Womens One Daily Orally Active PROCEDURES No Information RESULTS No Results REASON FOR VISIT [facility] [phone] MEDICAL (GENERAL) HISTORY Type Description Date Medical [...] Medication Name Sig Start Date Stop Date [place] 3 1000 MG 1 capsule Orally Once a day Lisinopril 10 MG 1 tablet Orally Once a day for 30 day(s) Jun PROzac 20 MG 1 capsule in the morning Orally Once a day Womens One Daily Orally Prozac 10 MG TAKE ONE CAPSULE BY MOUTH EVERY MORNING Next Appt Details Provider Name:Momo White Dany, 2021-10-10 07 :15:00 AM, 90Daniela KNIGHT, , [place], [address], Insurance Providers Payer Name Payer Address Payer Phone Insured Name Patient Relati onship to Insured Coverage Start Date Coverage End Date BCBS [place] LOVE PPO [id number] [facility] [place] [id number] RADHA CLEMENS [id number]
--- OUTSIDE RECORDS SUMMARY | 2021-08-30 10:06 | CCD ---
Author Author [facility] [employer] Organization [facility] [employer] [facility] [facility] Address Unknown Phone Unavailable Care Team Providers Care Chuck Splitter Name Role Phone Momo Saenz Unavailable PROBLEMS Type Condition ICD9-CM Code [id number] Code Onset Dates Condition S tatus W/U Status Risk SNOMED Code Notes Problem Colon cancer screening Z12.11 Active confirmed 406067235 Problem Breast screening Z12.39 Active confirmed 243 023870 Problem Menopausal symptom N95.1 Active confirmed 2 0210846 Problem Immunization counseling Z71.89 Active confirmed 607499135 Problem Visit for annual health examination Z00.00 Acti ve confirmed 792819635 Problem Paresthesia of skin R20.2 Active confirmed 53951798 Problem Hyperlipidemia, unspecified hyperlipidemia type E7 8.5 Active confirmed 83546550 Problem Vitamin D deficiency E55.9 Active confirmed 62746779 Problem Menopausal symptoms N95.1 Active confirmed 76085226 Problem Hypergammaglobulinemia D89.2 Active confirmed 856449184 Problem Depression, unspecified depression type F32.9 Active confirmed 32389716 Problem Primary hypertension I10 Active confirmed 46025702 Problem Abnormal mammogram of right breast R92.8 Activ e confirmed 616096489 Problem Excessive bleeding in premenopausal period N92.4 Active confirmed 547248874 Problem Essential hypertension I10 Active confirmed 90269653 Problem Encounter for general adult medical exam ination with abnormal findings Z00.01 Active confirmed 941117889 Problem Mixed hyperlipidemia E78.2 Active confirmed [id number] ALLERGIES No Known Allergies ENCOUNTERS from 1965 to 2021-07-04 Encounter Location Date Provider Diagnosis [facility] Anjana HARDIK [phone] [place] [address] Jun, Momo Saenz Uterine enlargement N85.2 IMMUNIZATIONS Vaccine Route Administration Date Status Influenza 18 yrs & older Flublok IM Intramuscular Aug 07, 2019 Administered Influenza Pharmacy Given Unknown Jul 27, 2020 [...] Education Language: Question Answer Notes Languages spoken: Maori Scientology: Question Answer Notes Scientology 13 Yarsani Sexual Hx: Question Answer Notes Had sex [...] smoker REASON FOR REFERRAL from 1965 to 2021-07-04 Reason patient with uterine enlarge ment. myomatous, cervical polyp as well. Diagnosis 1 Uterine enlargement (N85.2) Referral Organization [facility] Referring Provider First Name Momo Referring Provider Last Name Dany Referring Provider Specialty Family Medicine Referred Provider Sparkle Hoover Referral Priority Routine General Notes Jagruti Cancino 07/04/2021 6: 42:50 AM > Sent [id number] matthews 07/04/2021 1:42:35 PM > faxed also pt called. VITAL SIGNS No information MEDICATIONS Medication SIG (Take, Route, Frequency, Duration) Notes Start Da te End Date Status Lisinopril 10 MG 1 tablet Orally Once a day for 30 day(s) Jun, Active Prozac 10 MG TAKE ONE CAPSULE BY MOUTH EVERY MORNING Active PROzac 20 MG 1 capsule in the morning Orally Once a day total 30mg in AM Active Ocala 3 1000 MG 1 capsule Orally Once a day 2 caps Active Lisinopril 5 MG 1 tablet Orally Once a day Jan, Active Womens One Daily Orally Active PROCEDURES No Information RESULTS No Results REASON FOR VISIT Ultrasound Results MEDICAL (GENERAL) HISTORY Type Description Date Medical [...] Notes Jun, Uterine enlargement (ICD-10 - N85.2) PLAN OF TREATMENT Medication Medication Name Sig Start Date Stop Date Ocala 3 1000 MG 1 capsule Orally Once a day Lisinopril 10 MG 1 tablet Orally Once a day for 30 day(s) Jun PROzac 20 MG 1 capsule in the morning Orally Once a day Womens One Daily Orally Prozac 10 MG TAKE ONE CAPSULE BY MOUTH EVERY MORNING Referrals Referral Date Details patient with uterine enlarge ment. myomatous, cervical polyp as well., Sparkle Hoover Next Appt Details Provider Name:Momo Saenz, 2021-10-10 07 :15:00 AM, [address] , , [place], [address], Insurance Providers Payer Name Payer Address Payer Phone Insured Name Patient Relati onship to Insured Coverage Start Date Coverage End Date BCBS [place] PPO [id number] [facility] [employer] [facility] ZHANNA DEL CID [place] [id number] [address] [id number]
--- OUTSIDE RECORDS SUMMARY | 2021-08-30 10:06 | CCD ---
Author Author [facility] Address Unknown Phone Unavailable Care Team Providers Care Billet Header Name Role Phone [place], Melina Mark EGG TRAYER Unavailable Unavailable [place], Melina Mark EGG TRAYER Unavailable Unavailable [place], Melina Mark EGG TRAYER Unavailable Unavailable Julio Cesar, Melina Mark EGG TRAYER Unavailable Unavailable [place], Melina Mark EGG TRAYER Unavailable Unavailable [place], Melina Mark EGG TRAYER Unavailable Unavailable Julio Cesar, Melina Mark EGG TRAYER Unavailable Unavailable Julio Cesar, Melina Mark EGG TRAYER Unavailable Unavailable [place], Melina Mark EGG TRAYER Unavailable Unavailable Julio Cesar, Melina Mark EGG TRAYER Unavailable Unavailable [place], Melina Mark EGG TRAYER Unavailable Unavailable Julio Cesar, Melina Mark EGG TRAYER Unavailable Unavailable [place], Melina Mark EGG TRAYER Unavailable Unavailable [place], Melina Mark EGG TRAYER Unavailable Unavailable Re-disclosure Warning The records that you are about to access may contain information from federally-assisted alcohol or drug abuse programs. If such information is present, then the following federally mandated warning applies: This information has been disclosed to you from records protected by federal confidentiality rules (42 CFR part 2). The federal rules prohibit you from making any further disclosure of this information unless further disclosure is expressly permitted by the written consent of the person to whom it pertains or as otherwise permitted by 42 CFR part 2. A general authorization for the release of medical or other information is NOT sufficient for this purpose. The Federal rules restrict any use of the information to criminally investigate or prosecute any alcohol or drug abuse patient.The records that you are about to access may contain highly sensitive health information, the redisclosure of which is protected by Article 27-F of the [facility] Public Health law. If you continue you may have access to information: Regarding HIV / AIDS; Provided by facilities licensed or operated by the [facility] Office of Mental Health; or Provided by the [facility] Office for People With Developmental Disabilities. If such information is present, then the following [facility] mandated warning applies: This information has been disclosed to you from confidential records which are protected by state law. State law prohibits you from making any further disclosure of this information without the specific written consent of the person to whom it pertains, or as otherwise permitted by law. Any unauthorized further disclosure in violation of state law may result in a fine or detention sentence or both. A general authorization for the release of medical or other information is NOT sufficient authorization for further disc losure. Family History Family Member Name Family Member Gender Family Member Status Date o f Status Description Data Source(s) Unknown Unknown Problem [facility] ([facility] ) Encounters Encounter Providers Location Date Indications Data Source(s ) Unknown [address] [facility] [place] [address] 08/17/2021 12:00:00 AM EDT eCW1 ([facility]) Unknown [address] [facility] [place] [address] 07/27/2021 12:00:00 AM EDT eCW1 ([facility]) Unknown [address] [facility] [place] [address] 07/18/2021 12:00:00 AM EDT eCW1 ([facility]) Unknown [address] [facility] [place] [address] 07/17/2021 12:00:00 AM EDT eCW1 ([facility]) Outpatient Attender: Mark CRUZ 07/11/2021 08:41:00 AM [facility] [place] [address] [facility] [address] 07/05/2021 12:00:00 AM EDT eCW1 ([facility]) Unknown [address] [facility] [address] 06/29/2021 12:00:00 AM EDT eCW1 ([facility]) Outpatient [address] [facility] [address] 06/09/2021 12:00:00 AM EDT eCW1 ([facility]) Outpatient [address] [facility] [address] 05/19/2021 12:00:00 AM EDT eCW1 ([facility]) [place]patient [address] [facility] [address] 02/10/2021 12:00:00 AM EDT eCW1 ([facility]) Outpatient [address] [facility] [address] 01/26/2021 12:00:00 AM EDT eCW1 ([facility]) Outpatient [address] [facility] [address] 11/28/2020 12:00:00 AM EST eCW1 ([facility]) Unknown [address] [facility] [address] 11/28/2020 12:00:00 AM EST eCW1 ([facility]) Outpatient [address] [facility] [address] 11/01/2020 12:00:00 AM EST eCW1 ([facility]) Unknown [address] [facility] [address] 11/01/2020 12:00:00 AM EST eCW1 ([facility]) Unknown [address] [facility] [address] 10/31/2020 12:00:00 AM EST eCW1 ([facility]) Unknown [address] [facility] [address] 08/19/2020 12:00:00 AM EDT eCW1 ([facility]) Outpatient [address] [facility] [address] 08/08/2020 12:00:00 AM EDT eCW1 ([facility]) Unknown [address] [facility] [address] 08/08/2020 12:00:00 AM EDT eCW1 ([facility]) Immunizations Vaccine Date Status Description Data Source(s) COVID-19 VACCINE Moderna 02/27/2021 12:00:00 AM EDT completed [facility] Vaccine Series Complete: YESThis Data wa s Submitted to [facility] [employer]. COVID-19 VACC,MRNA(MODERNA)/PF 01/26/2021 12:00:00 AM EDT completed [facility] COVID-19 VACCINE Moderna 01/26/2021 12:00:00 AM EDT completed [facility] Vaccine Series Complete: NOThis Data was Submitted to [facility] [employer]. IIV3. This is one of two codes replacing CVX 15, which is being retired. 07/27/2020 10:01:00 AM EDT completed eCW1 ([facility]) IIV3. This is one of two codes replacing CVX 15, which is being retired. 07/27/2020 10:01:00 AM EDT completed eCW1 ([facility]) IIV3. This is one of two codes replacing CVX 15, which is being retired. 07/27/2020 10:01:00 AM EDT completed eCW1 ([facility]) IIV3. This is one of two codes replacing CVX 15, which is being retired. 07/27/2020 10:01:00 AM EDT completed eCW1 ([facility]) IIV3. This is one of two codes replacing CVX 15, which is being retired. 07/27/2020 10:01:00 AM EDT completed eCW1 ([facility]) IIV3. This is one of two codes replacing CVX 15, which is being retired. 07/27/2020 10:01:00 AM EDT completed eCW1 ([facility]) IIV3. This is one of two codes replacing CVX 15, which is being retired. 07/27/2020 10:01:00 AM EDT completed eCW1 ([facility]) IIV3. This is one of two codes replacing CVX 15, which is being retired. 07/27/2020 10:01:00 AM EDT completed eCW1 ([facility]) IIV3. This is one of two codes replacing CVX 15, which is being retired. 07/27/2020 10:01:00 AM EDT completed eCW1 ([facility]) IIV3. This is one of two codes replacing CVX 15, which is being retired. 07/27/2020 10:01:00 AM EDT completed eCW1 ([facility]) IIV3. This is one of two codes replacing CVX 15, which is being retired. 07/27/2020 10:01:00 AM EDT completed eCW1 ([facility]) IIV3. This is one of two codes replacing CVX 15, which is being retired. 07/27/2020 10:01:00 AM EDT completed eCW1 ([facility]) IIV3. This is one of two codes replacing CVX 15, which is being retired. 07/27/2020 10:01:00 AM EDT completed eCW1 ([facility]) IIV3. This is one of two codes replacing CVX 15, which is being retired. 07/27/2020 10:01:00 AM EDT completed eCW1 ([facility]) IIV3. This is one of two codes replacing CVX 15, which is being retired. 07/27/2020 10:01:00 AM EDT completed eCW1 ([facility]) IIV3. This is one of two codes replacing CVX 15, which is being retired. 07/27/2020 10:01:00 AM EDT completed eCW1 ([facility]) IIV3. This is one of two codes replacing CVX 15, which is being retired. 07/27/2020 10:01:00 AM EDT completed eCW1 ([facility]) INFLUENZA VIRUS VACCINE QUADRIVALENT 2019- (6 MOS AN D UP) 07/27/2020 12:00:00 AM EDT completed [facility] Medications Medication Brand Name Start Date Product Form Dose Route Admi nistrative Instructions Pharmacy Instructions Status Indications Reaction Description Data Source(s) 60 mcg (15 mcg x 4)/0.5 mL 08/18/2021 12:00:00 AM EDT suspen lucille 0 INJECT IN RIGHT ARM DIRECTED INJECT IN RIGHT ARM DIRECTED SOLD: 08/18/2021 [facility] Lisinopril 10 MG Oral Tablet Lisinopril 10 MG 06/09/2021 12:00:00 A M EDT 1.0 {tablet} active Lisinopril 10 MG eCW1 ( [facility]) Lisinopril 10 MG Oral Tablet Lisinopril 10 MG 06/09/2021 12:00:00 A M EDT 1.0 {tablet} active Lisinopril 10 MG eCW1 ( [facility]) Lisinopril 10 MG Oral Tablet Lisinopril 10 MG 06/09/2021 12:00:00 A M EDT 1.0 {tablet} active Lisinopril 10 MG eCW1 ( [facility]) Lisinopril 10 MG Oral Tablet Lisinopril 10 MG 06/09/2021 12:00:00 A M EDT 1.0 {tablet} active Lisinopril 10 MG eCW1 ( [facility]) 10 mg 06/09/2021 12:00:00 AM EDT tablet 30 TAKE ONE TABLET BY MOUTH EVERY DAY TAKE ONE TABLET BY MOUTH EVERY DAY SOLD: 07/04/2021 [facility] 10 mg 06/09/2021 12:00:00 AM EDT tablet 30 TAKE ONE TABLET BY MOUTH EVERY DAY TAKE ONE TABLET BY MOUTH EVERY DAY SOLD: 08/12/2021 [facility] Lisinopril 10 MG Oral Tablet Lisinopril 10 MG 06/09/2021 12:00:00 A M EDT 1.0 {tablet} active Lisinopril 10 MG eCW1 ( [facility]) 10 mg 06/09/2021 12:00:00 AM EDT tablet 30 TAKE ONE TABLET BY MOUTH EVERY DAY TAKE ONE TABLET BY MOUTH EVERY DAY SOLD: 06/09/2021 [facility] Lisinopril 10 MG Oral Tablet Lisinopril 10 MG 06/09/2021 12:00:00 A M EDT 1.0 {tablet} active Lisinopril 10 MG eCW1 ( [facility]) Lisinopril 10 MG Oral Tablet Lisinopril 10 MG 06/09/2021 12:00:00 A M EDT 1.0 {tablet} active Lisinopril 10 MG eCW1 ( [facility]) Eth estra-Ethyn diac 0.05-1 MG (21) Oral Tablet / Inert 1 MG (7) Oral Tablet 28 Day Pack 1-50 mg-mcg ETHYNODIOL D-ETHINYL ESTRADIOL 04/11/2021 12:00:00 AM EDT tablet 28 TAKE ONE TABLET BY MOUTH EVERY D AY TAKE ONE TABLET BY MOUTH EVERY DAY SOLD: 05/12/2021 [facility] Eth estra-Ethyn diac 0.05-1 MG (21) Oral Tablet / Inert 1 MG (7) Oral Tablet 28 Day Pack 1-50 mg-mcg ETHYNODIOL D-ETHINYL ESTRADIOL 04/11/2021 12:00:00 AM EDT tablet 28 TAKE ONE TABLET BY MOUTH EVERY D AY TAKE ONE TABLET BY MOUTH EVERY DAY SOLD: 04/14/2021 [facility] 20 mg 04/07/2021 12:00:00 AM EDT capsule 90 TAKE ONE CAPSULE BY MOUTH EVERY DAY IN THE MORNING TAKE ONE CAPSULE BY MOUTH EVERY DAY IN THE MORNING RADHA [facility] 10 mg 04/07/2021 12:00:00 AM EDT capsule 90 TAKE ONE CAPSULE BY MOUTH EVERY MORNING TAKE ONE CAPSULE BY MOUTH EVERY MORNING SOLD: 04/09/2021 [facility] 10 mg 04/07/2021 12:00:00 AM EDT capsule 90 TAKE ONE CAPSULE BY MOUTH EVERY MORNING TAKE ONE CAPSULE BY MOUTH EVERY MORNING SOLD: 07/04/2021 [facility] 20 mg 04/07/2021 12:00:00 AM EDT capsule 90 TAKE ONE CAPSULE BY MOUTH EVERY DAY IN THE MORNING TAKE ONE CAPSULE BY MOUTH EVERY DAY IN THE MORNING RADHA [facility] 5 mg 03/24/2021 12:00:00 AM EDT tablet 90 TAKE ONE TABLET BY MOUTH EVERY DAY TAKE ONE TABLET BY MOUTH EVERY DAY SOLD: 03/26/2021 [facility] Eth estra-Ethyn diac 0.05-1 MG (21) Oral Tablet / Inert 1 MG (7) Oral Tablet 28 Day Pack 1-50 mg-mcg ETHYNODIOL D-ETHINYL ESTRADIOL 03/14/2021 12:00:00 AM EDT tablet 28 TAKE ONE TABLET BY MOUTH EVERY D AY TAKE ONE TABLET BY MOUTH EVERY DAY SOLD: 03/16/2021 [facility] 5 mg 01/26/2021 12:00:00 AM EDT tablet 30 TAKE ONE TABLET BY MOUTH EVERY DAY TAKE ONE TABLET BY MOUTH EVERY DAY SOLD: 01/26/2021 [facility] Lisinopril 5 MG Oral Tablet Lisinopril 5 MG 01/26/2021 12:00:00 AM EDT 1.0 {tablet} active Lisinopril 5 MG eCW1 ([facility]) Lisinopril 5 MG Oral Tablet Lisinopril 5 MG 01/26/2021 12:00:00 AM EDT 1.0 {tablet} active Lisinopril 5 MG eCW1 ([facility]) Lisinopril 5 MG Oral Tablet Lisinopril 5 MG 01/26/2021 12:00:00 AM EDT 1.0 {tablet} active Lisinopril 5 MG eCW1 ([facility]) Lisinopril 5 MG Oral Tablet Lisinopril 5 MG 01/26/2021 12:00:00 AM EDT 1.0 {tablet} active Lisinopril 5 MG eCW1 ([facility]) Lisinopril 5 MG Oral Tablet Lisinopril 5 MG 01/26/2021 12:00:00 AM EDT 1.0 {tablet} active Lisinopril 5 MG eCW1 ([facility]) Lisinopril 5 MG Oral Tablet Lisinopril 5 MG 01/26/2021 12:00:00 AM EDT 1.0 {tablet} active Lisinopril 5 MG eCW1 ([facility]) Lisinopril 5 MG Oral Tablet Lisinopril 5 MG 01/26/2021 12:00:00 AM EDT 1.0 {tablet} active Lisinopril 5 MG eCW1 ([facility]) Lisinopril 5 MG Oral Tablet Lisinopril 5 MG 01/26/2021 12:00:00 AM EDT 1.0 {tablet} active Lisinopril 5 MG eCW1 ([facility]) Lisinopril 5 MG Oral Tablet Lisinopril 5 MG 01/26/2021 12:00:00 AM EDT 1.0 {tablet} active Lisinopril 5 MG eCW1 ([facility]) 5 mg 01/26/2021 12:00:00 AM EDT tablet 30 TAKE ONE TABLET BY MOUTH EVERY DAY TAKE ONE TABLET BY MOUTH EVERY DAY SOLD: 02/22/2021 [facility] Lisinopril 5 MG Oral Tablet Lisinopril 5 MG 01/26/2021 12:00:00 AM EDT 1.0 {tablet} active Lisinopril 5 MG eCW1 ([facility]) 1-50 mg-mcg 01/16/2021 12:00:00 AM EDT tablet 28 TAKE ONE TABLET BY MOUTH EVERY DAY TAKE ONE TABLET BY MOUTH EVERY DAY SOLD: 02/15/2021 [facility] 1-50 mg-mcg 01/16/2021 12:00:00 AM EDT tablet 28 TAKE ONE TABLET BY MOUTH EVERY DAY TAKE ONE TABLET BY MOUTH EVERY DAY SOLD: 01/18/2021 [facility] 1-50 mg-mcg 12/19/2020 12:00:00 AM EST tablet 28 TAKE ONE TABLET BY MOUTH EVERY DAY TAKE ONE TABLET BY MOUTH EVERY DAY SOLD: 12/22/2020 [facility] Doxycycline Monohydrate 100 MG Oral Capsule Doxycycline [place] hydrate 100 MG 11/28/2020 12:00:00 AM EST 1.0 {capsule} active Doxycycline Monohydrate 100 MG eCW1 ([facility]) Doxycycline Monohydrate 100 MG Oral Capsule Doxycycline [place] hydrate 100 MG 11/28/2020 12:00:00 AM EST 1.0 {capsule} active Doxycycline Monohydrate 100 MG eCW1 ([facility]) Flonase Allergy Relief 50 MCG/ACT Flonase Allergy Relief 50 MCG/ACT 11/28/2020 12:00:00 AM EST 1.0 {spray_in_each_nostril} acti ve Flonase Allergy Relief 50 MCG/ACT eCW1 ([facility]) Flonase Allergy Relief 50 MCG/ACT Flonase Allergy Relief 50 MCG/ACT 11/28/2020 12:00:00 AM EST 1.0 {spray_in_each_nostril} acti ve Flonase Allergy Relief 50 MCG/ACT eCW1 ([facility]) 100 mg 11/28/2020 12:00:00 AM EST capsule 20 TAKE ONE CAPSULE BY MOUTH EVERY 12 HOURS FOR 10 DAYS TAKE ONE CAPSULE BY MOUTH EVERY 12 HOURS FOR 10 DAYS S OLD: 11/28/2020 [facility] cefdinir 300 MG Oral Capsule Cefdinir 300 MG Cefdinir 300 MG 11/01/2020 12:00:00 AM EST suspended Cefdinir 300 M G eCW1 ([facility]) cefdinir 300 MG Oral Capsule Cefdinir 300 MG Cefdinir 300 MG 11/01/2020 12:00:00 AM EST active Cefdinir 300 MG e CW1 ([facility]) 300 mg 11/01/2020 12:00:00 AM EST capsule 20 TAKE ONE CAPSULE BY MOUTH TWICE A DAY FOR 10 DAYS TAKE ONE CAPSULE BY MOUTH TWICE A DAY FOR 10 DAYS SOLD : 11/01/2020 [facility] cefdinir 300 MG Oral Capsule Cefdinir 300 MG Cefdinir 300 MG 11/01/2020 12:00:00 AM EST suspended Cefdinir 300 M G eCW1 ([facility]) cefdinir 300 MG Oral Capsule Cefdinir 300 MG Cefdinir 300 MG 11/01/2020 12:00:00 AM EST active Cefdinir 300 MG e CW1 ([facility]) 1-50 mg-mcg 10/31/2020 12:00:00 AM EST tablet 28 TAKE ONE TABLET BY MOUTH EVERY DAY TAKE ONE TABLET BY MOUTH EVERY DAY SOLD: 10/31/2020 [facility] 1-50 mg-mcg 10/31/2020 12:00:00 AM EST tablet 28 TAKE ONE TABLET BY MOUTH EVERY DAY TAKE ONE TABLET BY MOUTH EVERY DAY SOLD: 11/25/2020 [facility] Augmentin 875-125 MG UNK 08/08/2020 12:00:00 AM EDT 1.0 {tab let} suspended Augmentin 875-125 MG eCW1 ([facility]) Augmentin 875-125 MG UNK 08/08/2020 12:00:00 AM EDT 1.0 {tablet } active Augmentin 875-125 MG eCW1 ([facility]) 875-125 mg 08/08/2020 12:00:00 AM EDT tablet 20 TAKE ONE TABLET BY MOUTH EVERY 12 HOURS FOR 10 DAYS TAKE ONE TABLET BY MOUTH EVERY 12 HOURS FOR 10 DAYS SOLD: 08/08/2020 [facility] Augmentin 875-125 MG UNK 08/08/2020 12:00:00 AM EDT 1.0 {tablet } active Augmentin 875-125 MG eCW1 ([facility]) Augmentin 875-125 MG UNK 08/08/2020 12:00:00 AM EDT 1.0 {tab let} suspended Augmentin 875-125 MG eCW1 ([facility]) Augmentin 875-125 MG UNK 08/08/2020 12:00:00 AM EDT 1.0 {tab let} suspended Augmentin 875-125 MG eCW1 ([facility]) Augmentin 875-125 MG UNK 08/08/2020 12:00:00 AM EDT 1.0 {tab let} suspended Augmentin 875-125 MG eCW1 ([facility]) Augmentin 875-125 MG UNK 08/08/2020 12:00:00 AM EDT 1.0 {tablet } active Augmentin 875-125 MG eCW1 ([facility]) Augmentin 875-125 MG UNK 08/08/2020 12:00:00 AM EDT 1.0 {tablet } active Augmentin 875-125 MG eCW1 ([facility]) 20 mg 07/06/2020 12:00:00 AM EDT capsule 90 TAKE ONE CAPSULE BY MOUTH EVERY DAY IN THE MORNING TAKE ONE CAPSULE BY MOUTH EVERY DAY IN THE MORNING RADHA [facility] 10 mg 07/06/2020 12:00:00 AM EDT capsule 90 TAKE ONE CAPSULE BY MOUTH EVERY MORNING TAKE ONE CAPSULE BY MOUTH EVERY MORNING SOLD: 07/07/2020 [facility] 10 mg 07/06/2020 12:00:00 AM EDT capsule 90 TAKE ONE CAPSULE BY MOUTH EVERY MORNING TAKE ONE CAPSULE BY MOUTH EVERY MORNING SOLD: 09/28/2020 [facility] 20 mg 07/06/2020 12:00:00 AM EDT capsule 90 TAKE ONE CAPSULE BY MOUTH EVERY DAY IN THE MORNING TAKE ONE CAPSULE BY MOUTH EVERY DAY IN THE MORNING RADHA [facility] 10 mg 07/06/2020 12:00:00 AM EDT capsule 90 TAKE ONE CAPSULE BY MOUTH EVERY MORNING TAKE ONE CAPSULE BY MOUTH EVERY MORNING SOLD: 01/02/2021 [facility] 20 mg 07/06/2020 12:00:00 AM EDT capsule 90 TAKE ONE CAPSULE BY MOUTH EVERY DAY IN THE MORNING TAKE ONE CAPSULE BY MOUTH EVERY DAY IN THE MORNING RADHA [facility] 1-50 mg-mcg 05/11/2020 12:00:00 AM EDT tablet 28 TAKE ONE TABLET BY MOUTH EVERY DAY TAKE ONE TABLET BY MOUTH EVERY DAY SOLD: 09/28/2020 [facility] 1-50 mg-mcg 05/11/2020 12:00:00 AM EDT tablet 28 TAKE ONE TABLET BY MOUTH EVERY DAY TAKE ONE TABLET BY MOUTH EVERY DAY SOLD: 07/07/2020 [facility] 1-50 mg-mcg 05/11/2020 12:00:00 AM EDT tablet 28 TAKE ONE TABLET BY MOUTH EVERY DAY TAKE ONE TABLET BY MOUTH EVERY DAY SOLD: 08/31/2020 [facility] 1-50 mg-mcg 05/11/2020 12:00:00 AM EDT tablet 28 TAKE ONE TABLET BY MOUTH EVERY DAY TAKE ONE TABLET BY MOUTH EVERY DAY SOLD: 08/03/2020 [facility] Insurance Providers Payer name Policy type / Coverage type Policy ID Covered constitution party ID Covered constitution party's relationship to sanchez Policy Sanchez Plan Information [facility] LOVE PPO 302/307 [id number] [employer] [id number] Spo [id number] [employer] [id number] [id number] Blue Cross Blue Shield P [id number] SPOUSE [id number] ANSIG[facility]ardant Health [id number] ANSI-[employer]ool [id number] [employer] BCBS B [id number] P [id number] ANSI-[employer]ool [id number] ANSIGuardant Health [id number] ANSI-[employer] [id number] TRAVELERS NO FAULT [id number] SP [id number] ANSI-[employer] [id number] ANSI-Commercial [id number] ANSI-Commercial [id number] ANSI-Jobool [id number] TRAVELERS NO FAULT [id number] TRAVELERS NO FAULT [id number] S [id number] ANSI-Commercial [id number] [employer] BCBS PI PI BCBS EMPIRE BC [id number] [place] PPO 302/307 [id number] [employer] BCBS Health Maintenance Organization (HMO) [id number] Family Dependent [employer] B [id number] P VYS [id number] [place] PPO 302/307 [id number] [employer] P [id number] P VYS [id number] [place] PPO 302/307 [id number] BCBS OF [place] [id number] SPO YND [id number] [place] PPO 302/307 [id number] [place]BS [place] PPO 302/307 [id number] [id number] SELF PAY ONLY [id number] SP [id number] Problems, Conditions, and Diagnoses Code Display Name Description Problem Type Effective Dates Data Source(s) D25.9 Leiomyoma of uterus, unspecified LEIOMYOMA OF UT ERUS, UNSPECIFIED Diagnosis 07/11/2021 08:41:00 AM [facility] N85.2 Hypertrophy of uterus HYPERTROPHY OF UTERUS Diagnosis 07/11/2021 08:41:00 AM [facility] I10 [id number] Primary hypertension Problem 06/09/2021 12:0 0:00 AM EDT eCW1 ([facility]) E78.2 [id number] Mixed hyperlipidemia Problem 05/19/2021 12:0 0:00 AM EDT eCW1 ([facility]) Z00.01 [id number] Encounter for genera l adult medical examination with abnormal findings Problem 05/19/2021 12:00:00 AM EDT [facility] ([facility]) D89.2 Hypergammaglobulinemia Hypergammaglobulinemia Problem 05/19/2021 12:00:00 AM EDT [facility] ([facility]) I10 [id number] Essential hypertension Problem 01/26/2021 12 :00:00 AM EDT eC ([facility]) Surgeries/Procedures No Information Results ID Date Data Source PAP REQUEST FOR SERVICE 06/09/2021 12:00:00 AM EDT eCW ([facility]) Name Value Range Interpretation Code Description Data Alicia rce(s) Supporting Document(s) PAP REQUEST FOR SERVICE eCW ( [facility]) ID Date Data Source [id number] 12/19/2020 12:00:00 AM EST [facility] Name Value Range Interpretation Code Description Data Alicia rce(s) Supporting Document(s) SARS-CoV-2 (COVID-19) RNA [Presence] in Respiratory specimen by VIRGILIO with probe detection Not Detected [facility] This lab was ordered by [facility] and reported by [facility]. Procedure Social History Code Duration Value Status Description Data Source(s ) Smoking 06/09/2021 12:00:00 AM EDT Never Smoker completed Never S moker eCW1 ([facility]) Smoking 06/09/2021 12:00:00 AM EDT Never Smoker completed Never S moker eCW1 ([facility]) Smoking 06/09/2021 12:00:00 AM EDT Never Smoker completed Never S moker eCW1 ([facility]) Smoking 06/09/2021 12:00:00 AM EDT Never Smoker completed Never S moker eCW1 ([facility]) Smoking 06/09/2021 12:00:00 AM EDT Never Smoker completed Never S moker eCW1 ([facility]) Smoking 06/09/2021 12:00:00 AM EDT Never Smoker completed Never S moker eCW1 ([facility]) Smoking 06/09/2021 12:00:00 AM EDT Never Smoker completed Never S moker eCW1 ([facility]) Smoking 05/19/2021 12:00:00 AM EDT Never Smoker completed Never S moker eCW1 ([facility]) Smoking 02/10/2021 12:00:00 AM EDT Never Smoker completed Never S moker eCW1 ([facility]) Smoking 01/26/2021 12:00:00 AM EDT Never Smoker completed Never S moker eCW1 ([facility]) Smoking 11/28/2020 12:00:00 AM EST Never Smoker completed Never S moker eCW1 ([facility]) Smoking 11/28/2020 12:00:00 AM EST Never Smoker completed Never S moker eCW1 ([facility]) Smoking 11/01/2020 12:00:00 AM EST Never Smoker completed Never S moker eCW1 ([facility]) Smoking 11/01/2020 12:00:00 AM EST Never Smoker completed Never S moker eCW1 ([facility]) Smoking 08/08/2020 12:00:00 AM EDT Never Smoker completed Never S moker eCW1 ([facility]) Smoking 08/08/2020 12:00:00 AM EDT Never Smoker completed Never S moker eCW1 ([facility]) Smoking 08/08/2020 12:00:00 AM EDT Never Smoker completed Never S moker eCW1 ([facility]) Smoking 08/08/2020 12:00:00 AM EDT Never Smoker completed Never S moker eCW1 ([facility]) Vital Signs ID Date Data Source UNK Name Value Range Interpretation Code Description Data Source(s) Body weight 149 [lb_av] 149 [lb_av] eCW1 (Formerly [facility], [facility]) Body height [in_i] eCW1 ([facility]) Body mass index (BMI) [Ratio] 23.33 kg/m2 23.33 kg/m2 eCW1 ([facility]) Heart rate 92 /min 92 /min eCW1 (Counts include 234 beds at the [facility]) Respiratory rate 18 /min 18 /min eCW1 ([facility]) Body temperature 98 [degF] 98 [degF] eCW1 ([facility]) Systolic blood pressure 164 mm[Hg] 164 mm[Hg] e CW1 ([facility]) Diastolic blood pressure 106 mm[Hg] 106 mm[Hg] eCW1 ([facility]) Body weight 149.12 [lb_av] 149.12 [lb_av] eCW1 ([facility]) Body height [in_i] eCW1 ([facility]) Body mass index (BMI) [Ratio] 23.35 kg/m2 23.35 kg/m2 eCW1 ([facility]) Heart rate 86 /min 86 /min eCW1 (Counts include 234 beds at the [facility]) Respiratory rate 18 /min 18 /min eCW1 ([facility]) Body temperature 98 [degF] 98 [degF] eCW1 ([facility]) Systolic blood pressure 167 mm[Hg] 167 mm[Hg] e CW1 ([facility]) Diastolic blood pressure 86 mm[Hg] 86 mm[Hg] eCW1 ([facility]) Body weight 152 [lb_av] 152 [lb_av] eCW1 ([facility]ly [facility], [facility]) Body height [in_i] eCW1 ([facility]) Body mass index (BMI) [Ratio] 23.80 kg/m2 23.80 kg/m2 eCW1 ([facility]) Heart rate 86 /min 86 /min eCW1 (Counts include 234 beds at the [facility]) Respiratory rate 18 /min 18 /min eCW1 ([facility]) Body temperature 99.0 [degF] 99.0 [degF] eCW1 ( [facility]) Systolic blood pressure 147 mm[Hg] 147 mm[Hg] e CW1 ([facility]) Diastolic blood pressure 80 mm[Hg] 80 mm[Hg] eCW1 ([facility]) Body weight 155 [lb_av] 155 [lb_av] eCW1 ([facility]ly [facility], [facility]) Body height [in_i] eCW1 ([facility]) Body mass index (BMI) [Ratio] 24.27 kg/m2 24.27 kg/m2 eCW1 ([facility]) Heart rate 88 /min 88 /min eCW1 (Counts include 234 beds at the [facility]) Respiratory rate 18 /min 18 /min eCW1 ([facility]) Body temperature 99.2 [degF] 99.2 [degF] eCW1 ( [facility]) Systolic blood pressure 169 mm[Hg] 169 mm[Hg] e CW1 ([facility]) Diastolic blood pressure 95 mm[Hg] 95 mm[Hg] eCW1 ([facility]) Body weight 150 [lb_av] 150 [lb_av] eCW1 ([facility]ly [facility], [facility]) Body height [in_i] eCW1 ([facility]) Body mass index (BMI) [Ratio] 23.49 kg/m2 23.49 kg/m2 eCW1 ([facility]) Heart rate 86 /min 86 /min eCW1 (Counts include 234 beds at the [facility]) Respiratory rate 18 /min 18 /min eCW1 ([facility]) Body temperature 99.2 [degF] 99.2 [degF] eCW1 ( [facility]) Systolic blood pressure 163 mm[Hg] 163 mm[Hg] e CW1 ([facility]) Diastolic blood pressure 84 mm[Hg] 84 mm[Hg] eCW1 ([facility]) Body weight 151 [lb_av] 151 [lb_av] eCW1 ([facility]ly [facility], [facility]) Body height [in_i] eCW1 ([facility]) Body mass index (BMI) [Ratio] 23.65 kg/m2 23.65 kg/m2 eCW1 ([facility]) Heart rate 92 /min 92 /min eCW1 (Counts include 234 beds at the [facility]) Respiratory rate 18 /min 18 /min eCW1 ([facility]) Body temperature 98.9 [degF] 98.9 [degF] eCW1 ( [facility]) Systolic blood pressure 142 mm[Hg] 142 mm[Hg] e CW1 ([facility]) Diastolic blood pressure 88 mm[Hg] 88 mm[Hg] eCW1 ([facility]) Body weight 151 [lb_av] 151 [lb_av] eCW1 ([facility]ly [facility], [facility]) Body height [in_i] eCW1 ([facility]) Body mass index (BMI) [Ratio] 23.65 kg/m2 23.65 kg/m2 eCW1 ([facility]) Heart rate 82 /min 82 /min eCW1 (Counts include 234 beds at the [facility]) Respiratory rate 16 /min 16 /min eCW1 ([facility]) Body temperature 99.9 [degF] 99.9 [degF] eCW1 ( [facility]) Systolic blood pressure 152 mm[Hg] 152 mm[Hg] e CW1 ([facility]) Diastolic blood pressure 87 mm[Hg] 87 mm[Hg] eCW1 ([facility]) Patient Treatment Plan of Care Planned Activity Planned Date Details Description Data Source (s) Lisinopril 10 MG Oral Tablet 06/09/2021 12:00:00 AM EDT eCW1 ([facility]) Lisinopril 10 MG Oral Tablet 06/09/2021 12:00:00 AM EDT eCW1 ([facility]) Lisinopril 10 MG Oral Tablet 06/09/2021 12:00:00 AM EDT eCW1 ([facility]) Lisinopril 10 MG Oral Tablet 06/09/2021 12:00:00 AM EDT eCW1 ([facility]) Lisinopril 10 MG Oral Tablet 06/09/2021 12:00:00 AM EDT eCW1 ([facility]) Lisinopril 10 MG Oral Tablet 06/09/2021 12:00:00 AM EDT eCW1 ([facility]) Lisinopril 10 MG Oral Tablet 06/09/2021 12:00:00 AM EDT eCW1 ([facility]) Lisinopril 5 MG Oral Tablet 01/26/2021 12:00:00 AM EDT eCW1 ([facility]) Lisinopril 5 MG Oral Tablet 01/26/2021 12:00:00 AM EDT eCW1 ([facility]) Lisinopril 5 MG Oral Tablet 01/26/2021 12:00:00 AM EDT eCW1 ([facility]) Doxycycline Monohydrate 100 MG Oral Capsule 11/28/2020 12:00:00 AM EST eCW1 ([facility]) Flonase Allergy Relief 50 MCG/ACT 11/28/2020 12:00:00 AM EST eCW1 ([facility]) Doxycycline Monohydrate 100 MG Oral Capsule 11/28/2020 12:00:00 AM EST eCW1 ([facility]) Flonase Allergy Relief 50 MCG/ACT 11/28/2020 12:00:00 AM EST eCW1 ([facility]) cefdinir 300 MG Oral Capsule 11/01/2020 12:00:00 AM EST eCW1 ([facility]) cefdinir 300 MG Oral Capsule 11/01/2020 12:00:00 AM EST eCW1 ([facility]) Augmentin 875-125 MG 08/08/2020 12:00:00 AM EDT eCW1 ([facility]) Augmentin 875-125 MG 08/08/2020 12:00:00 AM EDT eCW1 ([facility]) Augmentin 875-125 MG 08/08/2020 12:00:00 AM EDT eCW1 ([facility]) Augmentin 875-125 MG 08/08/2020 12:00:00 AM EDT eCW1 ([facility])
--- OUTSIDE RECORDS SUMMARY | 2021-08-30 10:06 | CCD ---
Author Author [facility] [employer] Organization [facility] [employer] [facility] Address Unknown Phone Unavailable Care Team Providers Care Finance Controller Name Role Phone Momo Saenz Unavailable PROBLEMS Type Condition ICD9-CM Code [id number] Code Onset Dates Condition S tatus W/U Status Risk SNOMED Code Notes Problem Colon cancer screening Z12.11 Active confirmed 431818240 Problem Breast screening Z12.39 Active confirmed 243 365216 Problem Menopausal symptom N95.1 Active confirmed 2 3932782 Problem Immunization counseling Z71.89 Active confirmed 701232365 Problem Visit for annual health examination Z00.00 Acti ve confirmed 499812146 Problem Paresthesia of skin R20.2 Active confirmed 79946354 Problem Hyperlipidemia, unspecified hyperlipidemia type E7 8.5 Active confirmed 74722116 Problem Vitamin D deficiency E55.9 Active confirmed 45616063 Problem Menopausal symptoms N95.1 Active confirmed 26186154 Problem Hypergammaglobulinemia D89.2 Active confirmed 196565018 Problem Depression, unspecified depression type F32.9 Active confirmed 65852817 Problem Primary hypertension I10 Active confirmed 42402993 Problem Abnormal mammogram of right breast R92.8 Activ e confirmed 861534109 Problem Excessive bleeding in premenopausal period N92.4 Active confirmed 882569314 Problem Essential hypertension I10 Active confirmed 29776148 Problem Encounter for general adult medical exam ination with abnormal findings Z00.01 Active confirmed 176077951 Problem Mixed hyperlipidemia E78.2 Active confirmed 061142936 ALLERGIES No Known Allergies ENCOUNTERS from 1965 to 2021-07-28 Encounter Location Date Provider Diagnosis [facility] Anjana HARDIK [phone] [place] [address] Jul, Momo Broussardh IMMUNIZATIONS Vaccine Route Administration [...] Education Language: Question Answer Notes Languages spoken: Palauan Yarsanism: Question Answer Notes Yarsanism 13 Rastafari Sexual Hx: Question Answer Notes Had sex [...] a day total 30mg in AM Active [place] 3 1000 MG 1 capsule Orally Once [...] Medication Name Sig Start Date Stop Date [place] 3 1000 MG 1 capsule Orally Once a day Lisinopril 10 MG 1 tablet Orally Once a day for 30 day(s) Jun PROzac 20 MG 1 capsule in the morning Orally Once a day Womens One Daily Orally Prozac 10 MG TAKE ONE CAPSULE BY MOUTH EVERY MORNING Next Appt Details Provider Name:Momo Saenz, 2021-10-10 07 :15:00 AM, Anjana KNIGHT, , [place], [address], Insurance Providers Payer Name Payer Address Payer Phone Insured Name Patient Relati onship to Insured Coverage Start Date Coverage End Date [id number] [facility] [employer] [place] [facility] [address] RADHA CLEMENS [id number]
[2021-08-30] MEDS ORDERED: BUPIVACAINE/EPIN 0.25% 30 ML VIAL As Ordered ONE (11:32)
[2021-08-30] MEDS ORDERED: FLUORESCEIN 10% (100MG/ML) 5 ML VIAL As Ordered ONE (11:32)
[2021-08-30 11:35] LABS: HEMATOCRIT 42.5 % (36.0-47.0); HEMOGLOBIN 14.1 g/dl (12.0-15.5); MEAN CORPUSCULAR HEMOGLOBIN 29.3 pg (27.0-33.0); MEAN CORPUSCULAR HGB CONC 33.2 g/dl (32.0-36.5); MEAN CORPUSCULAR VOLUME 88.4 fl (80.0-96.0); PLATELET COUNT, AUTOMATED 336 10^3/uL (150-450); RED BLOOD COUNT 4.81 10^6/uL (4.00-5.40); WHITE BLOOD COUNT 5.7 10^3/uL (4.0-10.0)
[2021-08-30] MEDS ORDERED: SIMETHICONE 80MG CHEW TAB PO SCH (12:00)
[2021-08-30 12:03] LABS: BLOOD UREA NITROGEN 11 MG/DL (7-18); CALCIUM LEVEL 10.3 MG/DL (8.5-10.1); CARBON DIOXIDE LEVEL 30 MEQ/L (21-32); CHLORIDE LEVEL 106 MEQ/L (98-107); CREATININE FOR GFR 0.85 MG/DL (0.55-1.30); GLOMERULAR FILTRATION RATE > 60.0 (>51); GLUCOSE, FASTING 90 MG/DL (70-100); SODIUM LEVEL 138 MEQ/L (136-145)
[2021-08-30] MEDS ORDERED: ROCURONIUM BROMIDE 50 MG/5 ML VIAL As Ordered ONE (13:00)
[2021-08-30] MEDS ORDERED: LR 1,000 ML IV SCH (14:30)
[2021-08-30] MEDS ORDERED: METOCLOPRAMIDE INJ 10MG/2ML VIAL (J2765 PER 1) IV PRN (14:30)
[2021-08-30] MEDS ORDERED: MEPERIDINE INJ 25 MG/ML VIAL (J2175) IV PRN (14:30)
[2021-08-30] MEDS ORDERED: ONDANSETRON 4MG/2ML VIAL IV PRN (14:30)
[2021-08-30] MEDS ORDERED: HYDROMORPHONE HCL 0.5 MG/ 0.5 ML SYRINGE (J1170 PER 1) IV PRN (14:30)
[2021-08-30] MEDS ORDERED: PERCOCET 5MG/325MG TAB PO PRN (14:35)
[2021-08-30] MEDS: fentaNYL 100 MCG/2 ML INJECTION (J3010) IV PRN ×2 (14:40→15:04)
[2021-08-30] MEDS: oxyCODONE 5MG TAB PO PRN ×2 (14:42→15:08)
[2021-08-30 15:45] VITALS: BP 145/69
--- NOTE | 2021-08-30 15:51 | RO ---
OPERATIVE NOTE DATE OF OPERATION: 08/30/2021 Myla is a 56-year-old female with a history of enlarged uterus and extensive fibroid uterus. After extensive counseling, a decision was made to proceed with a robotic-assisted total hysterectomy, bilateral salpingo-oophorectomy and cystoscopy. PREOPERATIVE DIAGNOSIS: 1. Enlarged uterus. 2. Fibroid uterus. POSTOPERATIVE DIAGNOSIS: 1. Enlarged uterus. 2. Fibroid uterus. 3. Multiple fibroids. PROCEDURE: Robotic-assisted total hysterectomy. Bilateral salpingo-oophorectomy. Multiple myomectomy. Cystoscopy. SURGEON: Lauro Pemberton DO MARKETING SALES SUPERVISOR: ANESTHESIA: General COMPLICATIONS: None. ESTIMATED BLOOD LOSS: Less than 40 mL. SPECIMENS SENT TO LAB: The uterus, tubes, ovaries, fibroids. The uterus and fibroids measure 450 gm. DESCRIPTION OF PROCEDURE: After obtaining informed consent, the patient was taken to the operating room where general anesthetic was found to be adequate. She was then draped and prepped in the usual sterile fashion in a dorsal lithotomy position. At this point, a Salmon catheter was placed in the bladder for drainage. We then placed a HUMI II uterine manipulator. I then turned my attention to the abdomen where an 8 mm infraumbilical incision was made. Using the Veress needle, the abdomen was insufflated with CO2 gas to approximately 3.5 liters. We then placed two left lateral ports. For robotic arm 1 in the assist port on the right side, an 8 mm lateral portal was placed under direct visualization. The patient was then placed in steep Trendelenburg. The robot was brought to the patient's right side and docked in the usual fashion. After docking the camera port, the system was targeted. After passing the targeted cuff, robotic arm 1 and 2 was then docked in the usual fashion. A vessel sealer was placed in arm 1, a bipolar grasper placed in arm 2. I then unscrubbed and went to the surgeon's console and began the surgery. Significantly enlarged multiple fibroid uterus was noted with a large lower uterine segment fibroid. At this point, the infundibulopelvic ligament was identified on both sides. We then cauterized and cut them with the vessel sealer. Given the size of the fibroids, we were not able to get to the uterine arteries at this point. The round ligament was then cauterized and cut. The anterior leaflet of the broad ligament was dissected to push the bladder as well as the fibroid out of the operative field. The opposite side was done in a similar fashion. At this point, the uterus was able to be tented up. We then secured the uterine arteries using the vessel sealer on each side. The large fibroid on the lower uterine segment was then removed and left in the pelvis for later removal. At this point, the bladder was pushed completely out of the operative field. An anterior-posterior colpotomy was performed. The uterus as well as fibroid was brought to the vagina given the size of the uterus in the fibroids. Multiple myomectomy had to be performed vaginally before we were able to remove the uterus, tubes and ovaries. After removing the uterus, tubes, ovaries and fibroids, a moistened sponge lap was placed in the vagina to maintain pneumo. I then unscrubbed and went to the surgeon console and using a 2-0 V-Loc suture, the vaginal cuff was then closed in a running fashion. 1 cc of fluorescein was given by the anesthesiologist to assist with the cystoscopy. I then rescrubbed and went to the patient's side retrograde, filled the bladder to 130 mL of normal saline. The Salmon catheter was removed, a cystoscope inserted. Bilateral ureteral jets were noted, no evidence of any bladder injury. At this point, all instruments removed. Salmon catheter placed back in the bladder for drainage. The laparoscopic ports were then closed using 3-0 Vicryl in a subcuticular fashion. 1/4% Marcaine was placed for postoperative pain, Dermabond placed. The patient tolerated the procedure well. She was then transferred to recovery room in stable condition. [facility]
[2021-08-30] MEDS ORDERED: IBUPROFEN 800 MG TAB PO SCH (18:00)
== END 2021-08-30 16:10 | disposition home or self-care (01) ==
LOC: M SDC 10:00
PROVIDERS: ATTEND Obstetrics & Gynecology
DX: N85.2 Hypertrophy of uterus (principal); D25.9 Leiomyoma of uterus, unspecified; I10 Essential (primary) hypertension; Z79.899 Other long term (current) drug therapy
CPT/HCPCS: 36415; 58571; 80048; 85027; 86850; 86900; 86901; 88307; J0131; J0690; J1100; J1170; J1885; J2250; J2405; J2765; J3010; S2900

== ENCOUNTER → 2021-10-10 | Outpatient (REF) | payer BC ==
[~2021-10-10] MED LIST changes: -ACETAMINOPHEN 1000MG 100ML IV BTL (OFIRMEV) (J0131 PER 10MG) As Ordered ONE; -HYDROmorphone HCL 2 MG/ML 1ML VIAL As Ordered ONE; -KETOROLAC 60MG 2ML VIAL As Ordered ONE; -LIDOCAINE 1% MDV 20ML VIAL SQ PRN; -LIDOCAINE 2% 100MG/5ML SDV (FOR ANES.) As Ordered ONE; -LR 1,000 ML IV ONE; -MIDAZOLAM INJ 2MG/2ML VIAL (J2250 PER 1MG) As Ordered ONE; -ONDANSETRON 4MG/2ML VIAL As Ordered ONE; -ROCURONIUM BROMIDE 50 MG/5 ML VIAL As Ordered ONE; -SUGAMMADEX SODIUM 500 MG/5 ML VIAL (BRIDION) As Ordered ONE; -ceFAZolin SOD 2 GM in IV 1 EA IV ONE; -dexameTHASONE 4 MG/ML 1ML VIAL (J1100 PER 1MG) As Ordered ONE; -fentaNYL 100 MCG/2 ML INJECTION (J3010) As Ordered ONE; -propofoL 200 MG/20 ML VIAL As Ordered ONE
[2021-10-10 18:01] LABS: CORTISOL AM 9.3 UG/DL (4.3-22.4); ESTRADIOL < 19.0 PG/ML; FOLLICLE STIMULATING HORMONE 90.9 mIU/mL; PROGESTERONE 0.26 NG/ML
== END ==
LOC: M LAB REF 16:27
PROVIDERS: ATTEND Obstetrics & Gynecology
DX: N95.1 Menopausal and female climacteric states (principal)

== ENCOUNTER → 2022-08-03 | Outpatient (REF) | payer BC ==
[~2022-08-03] MED LIST changes: -FLUO10CA16 PO; +FLUO10CA18 PO
[2022-08-03 12:37] LABS: BLOOD UREA NITROGEN 14 MG/DL (7-18); CALCIUM LEVEL 9.9 MG/DL (8.5-10.1); CARBON DIOXIDE LEVEL 30 MEQ/L (21-32); CHLORIDE LEVEL 101 MEQ/L (98-107); CHOLESTEROL LEVEL 265 MG/DL (<200); CHOLESTEROL RISK RATIO 4.416 (<5); CREATININE FOR GFR 0.72 MG/DL (0.55-1.30); GLOMERULAR FILTRATION RATE > 60.0 (>51); GLUCOSE, FASTING 84 MG/DL (70-100); HDL CHOLESTEROL 60 MG/DL (>40); LDL CHOLESTEROL 166 MG/DL (<100); NON-HDL-C 205 MG/DL; POTASSIUM SERUM 4.5 MEQ/L (3.5-5.1); SODIUM LEVEL 136 MEQ/L (136-145); TRIGLYCERIDES LEVEL 196 MG/DL (<150)
== END ==
LOC: M SFHCCLAY 08:35
PROVIDERS: ATTEND Family Medicine
DX: I10 Essential (primary) hypertension (principal)

== ENCOUNTER → 2022-08-21 | Outpatient (CLI) | payer BC | LOC: M SOG 11:16 | PROVIDERS: ATTEND Orthopaedic Surgery Hand Surgery | DX: G56.03 Carpal tunnel syndrome, bilateral upper limbs (principal) ==

== ENCOUNTER → 2022-09-20 | Outpatient (CLI) | payer BC ==
[~2022-09-20] MED LIST changes: +LISI20TA35 PO; +MULT-40 PO
== END ==
LOC: M LABSMTC 11:07
PROVIDERS: ATTEND Anesthesiology
DX: Z01.812 Encounter for preprocedural laboratory examination (principal); Z11.52 Encounter for screening for COVID-19

== ENCOUNTER 2022-09-24 07:01 | Day surgery (SDC) | payer BC ==
[~2022-09-24] VITALS: Ht 165.1 cm; Wt 71.1 kg
[2022-09-24] MEDS ORDERED: LR 1,000 ML IV SCH ×2 (07:20→10:20)
[2022-09-24] MEDS ORDERED: propofoL 200 MG/20 ML VIAL As Ordered ONE (08:08)
[2022-09-24] MEDS ORDERED: MIDAZOLAM INJ 2MG/2ML VIAL (J2250 PER 1MG) As Ordered ONE (08:08)
[2022-09-24] MEDS ORDERED: fentaNYL 100 MCG/2 ML INJECTION As Ordered ONE (08:08)
[2022-09-24] MEDS ORDERED: LIDOCAINE 2% 100MG/5ML SDV (FOR ANES.) As Ordered ONE (08:09)
[2022-09-24] MEDS ORDERED: ONDANSETRON 4MG 2ML VIAL As Ordered ONE (08:09)
[2022-09-24] MEDS ORDERED: dexameTHASONE 4 MG/ML 1ML VIAL (J1100 PER 1MG) As Ordered ONE (08:09)
[2022-09-24] MEDS ORDERED: BACITRACIN OINTMENT 30GM TUBE As Ordered ONE (09:17)
[2022-09-24] MEDS ORDERED: BUPIVACAINE HCL 0.25% 30ML VIAL As Ordered ONE (09:17)
[2022-09-24] MEDS ORDERED: KETOROLAC 60MG 2ML VIAL As Ordered ONE (10:04)
[2022-09-24] MEDS ORDERED: oxyCODONE 5MG TAB PO PRN (10:20)
[2022-09-24] MEDS ORDERED: fentaNYL 100 MCG/2 ML INJECTION IV PRN (10:20)
[2022-09-24] MEDS ORDERED: ONDANSETRON 4MG 2ML VIAL IV PRN (10:20)
[2022-09-24] MEDS: HYDROMORPHONE HCL 0.5 MG/ 0.5 ML SYRINGE (J1170 PER 1) IV PRN ×2 (10:31→10:38)
[2022-09-24 11:05] VITALS: BP 137/74
== END 2022-09-24 11:25 | disposition home or self-care (01) ==
LOC: M SDC 07:01
PROVIDERS: ATTEND Orthopaedic Surgery Hand Surgery
DX: G56.02 Carpal tunnel syndrome, left upper limb (principal); I10 Essential (primary) hypertension; F41.9 Anxiety disorder, unspecified; F32.A Depression, unspecified; Z79.899 Other long term (current) drug therapy
CPT/HCPCS: 29848; J1100; J1170; J1885; J2250; J2405; J3010

== ENCOUNTER → 2022-11-05 | Outpatient (CLI) | payer BC | LOC: M LABSMTC 09:46 | PROVIDERS: ATTEND Anesthesiology | DX: Z01.812 Encounter for preprocedural laboratory examination (principal); Z11.52 Encounter for screening for COVID-19 ==

== ENCOUNTER 2022-11-07 06:10 | Day surgery (SDC) | payer BC ==
[~2022-11-07] VITALS: Ht 180.3 cm; Wt 71.6 kg
[2022-11-07] MEDS ORDERED: LR 1,000 ML IV SCH ×2 (06:15→08:35)
[2022-11-07] MEDS ORDERED: LIDOCAINE 2% 100MG/5ML SDV (FOR ANES.) As Ordered ONE (07:09)
[2022-11-07] MEDS ORDERED: propofoL 200 MG/20 ML VIAL As Ordered ONE (07:09)
[2022-11-07] MEDS ORDERED: ONDANSETRON 4MG 2ML VIAL As Ordered ONE (07:09)
[2022-11-07] MEDS ORDERED: fentaNYL 100 MCG/2 ML INJECTION As Ordered ONE (07:09)
[2022-11-07] MEDS ORDERED: MIDAZOLAM INJ 2MG/2ML VIAL As Ordered ONE (07:10)
[2022-11-07] MEDS ORDERED: POLYSPORIN TOPICAL OINTMENT 15GM As Ordered ONE (07:14)
[2022-11-07] MEDS ORDERED: BUPIVACAINE HCL 0.5% 30ML VIAL As Ordered ONE (07:14)
[2022-11-07] MEDS ORDERED: KETOROLAC 60MG 2ML VIAL As Ordered ONE (08:00)
[2022-11-07] MEDS ORDERED: TRAM50TA2 PO (08:32)
[2022-11-07] MEDS ORDERED: oxyCODONE 5MG TAB PO PRN (08:35)
[2022-11-07] MEDS ORDERED: fentaNYL 100 MCG/2 ML INJECTION IV PRN (08:35)
[2022-11-07] MEDS ORDERED: ONDANSETRON 4MG 2ML VIAL IV PRN (08:35)
[2022-11-07 09:41] VITALS: BP 158/75
== END 2022-11-07 09:50 | disposition home or self-care (01) ==
LOC: M SDC 06:10
PROVIDERS: ATTEND Orthopaedic Surgery Hand Surgery
DX: G56.01 Carpal tunnel syndrome, right upper limb (principal); I10 Essential (primary) hypertension; Z79.899 Other long term (current) drug therapy
CPT/HCPCS: 29848; J2405

== ENCOUNTER → 2024-03-13 | Outpatient (REF) | payer BC ==
[~2024-03-13] MED LIST changes: +FLUO-290 PO; -FLUO10CA18 PO; +TRAM50TA2 PO
== END ==
LOC: M SFHCCLAY 07:56
PROVIDERS: ATTEND Family Medicine
DX: B34.9 Viral infection, unspecified (principal); R05.1 Acute cough

== ENCOUNTER → 2024-03-31 | Outpatient (CLI) | payer BC | LOC: M CLY 15:41 | PROVIDERS: ATTEND Family Medicine | DX: J12.9 Viral pneumonia, unspecified (principal) ==

== ENCOUNTER → 2024-12-24 | Outpatient (REF) | payer BC ==
[~2024-12-24] MED LIST changes: +FLUO-365 PO; -FLUO20CA22 PO
[2024-12-24 13:03] LABS: HEMATOCRIT 40.3 % (36.0-47.0); HEMOGLOBIN 13.4 g/dl (12.0-15.5); MEAN CORPUSCULAR HEMOGLOBIN 29.8 pg (27.0-33.0); MEAN CORPUSCULAR HGB CONC 33.3 g/dl (32.0-36.5); MEAN CORPUSCULAR VOLUME 89.6 fl (80.0-96.0); PLATELET COUNT, AUTOMATED 292 10^3/uL (150-450)
[2024-12-24 13:05] LABS: THYROID STIMULATING HORMONE 0.696 uIU/ML (0.55-4.78); TOTAL 25(OH) VITAMIN D 25.4 NG/ML (20.0-100.0)
[2024-12-24 13:07] LABS: ALBUMIN 3.9 G/DL (3.2-5.2); ALKALINE PHOSPHATASE 47 U/L (35-104); ALT/SGPT 23 U/L (7.0-40); AST/SGOT 18 U/L (<34); BILIRUBIN,TOTAL 0.6 MG/DL (0.3-1.2); BLOOD UREA NITROGEN 16 MG/DL (9-23); CALCIUM LEVEL 9.6 MG/DL (8.5-10.1); CARBON DIOXIDE LEVEL 29 MMOL/L (20-31); CHLORIDE LEVEL 105 MMOL/L (98-107); CHOLESTEROL LEVEL 233 MG/DL (<200); CHOLESTEROL RISK RATIO 3.38 (<5); CREATININE FOR GFR 0.66 MG/DL (0.55-1.30); GLOMERULAR FILTRATION RATE > 60.0 (>51); GLUCOSE, FASTING 91 MG/DL (60-100); HDL CHOLESTEROL 68.8 MG/DL (>40); LDL CHOLESTEROL 141.4 MG/DL (<100); NON-HDL-C 164.2 MG/DL; POTASSIUM SERUM 4.5 MMOL/L (3.5-5.1); SODIUM LEVEL 141 MMOL/L (136-145); TOTAL PROTEIN 7.1 G/DL (5.7-8.2); TRIGLYCERIDES LEVEL 114 MG/DL (<150)
[2024-12-24 13:08] LABS: FREE T4 1.04 NG/DL (0.89-1.76)
[2024-12-24 13:16] LABS: HEMOGLOBIN A1c 5.3 % (4.0-6.0)
== END ==
LOC: M SFHCCLAY 07:51
PROVIDERS: ATTEND Physician Assistant
DX: I10 Essential (primary) hypertension (principal); N95.1 Menopausal and female climacteric states; F32.9 Major depressive disorder, single episode, unspecified; R53.83 Other fatigue

== ENCOUNTER → 2025-09-17 | Outpatient (REF) | payer BC ==
[2025-09-17 14:37] LABS: IRON (FE) 68 UG/DL (50-170); PERCENT SATURATION 19.8 % (13.2-45.0); PLATELET COUNT, AUTOMATED 355 10^3/uL (150-450)
[2025-09-17 14:38] LABS: ALT/SGPT 21 U/L (7.0-40); AST/SGOT 19 U/L (<34); CALCIUM LEVEL 9.2 MG/DL (8.3-10.6); CARBON DIOXIDE LEVEL 30 MMOL/L (20-31); CHLORIDE LEVEL 101 MMOL/L (98-107); CREATININE FOR GFR 0.69 MG/DL (0.55-1.30); GLOMERULAR FILTRATION RATE > 90.0 (>45); POTASSIUM SERUM 4.4 MMOL/L (3.5-5.1); SODIUM LEVEL 139 MMOL/L (136-145); VITAMIN B12 LEVEL 528 PG/ML (211-911)
== END ==
LOC: M SFHCCLAY 07:48
PROVIDERS: ATTEND Physician Assistant
DX: D64.9 Anemia, unspecified (principal)

== ENCOUNTER → 2025-09-22 | Outpatient (REF) | payer BC ==
[2025-09-22 13:23] LABS: TOTAL 25(OH) VITAMIN D 33.0 NG/ML (20.0-100.0)
[2025-09-22 13:24] LABS: FREE T4 1.13 NG/DL (0.89-1.76)
== END ==
LOC: M SFHCCLAY 08:15
PROVIDERS: ATTEND Physician Assistant
DX: R53.83 Other fatigue (principal); I10 Essential (primary) hypertension; N95.1 Menopausal and female climacteric states; F32.9 Major depressive disorder, single episode, unspecified; E78.2 Mixed hyperlipidemia; W57.XXXA Bitten or stung by nonvenomous insect and other nonvenomous arthropods, initial encounter